=== PATIENT | female | born 1980 | race African-American/Black ===

== ENCOUNTER 2016-06-14 20:57 | Emergency (ER) | payer MEDICARE, MEDICAID ==
[~2016-06-14] VITALS: Ht 175.3 cm; Wt 117.9 kg
[~2016-06-14 20:57] MED LIST: ACET-704 PO; AMOX1TAB10 PO; AMOX1TAB61 PO; ASPI81TA11 PO; CARV12.52 PO; CYCL10TA2 PO; HYDR-971 PO; IBUP-1060 PO; IRON18TA PO; LISI-334 PO; LISI-338 PO; NITR100C62 PO; OXYC5TAB PO; PENI250T2 PO; PHEN100T82 PO; SULF1TAB24 PO
[2016-06-14 21:03] VITALS: BP 158/95
[2016-06-14] MEDS ORDERED: AMOX500C PO (21:38)
[2016-06-14] MEDS ORDERED: HYDR-971 PO (21:38)
--- NOTE | 2016-06-14 21:38 | PHYS DOC ---
Past Medical History Past Medical History: CHF, Hypertension, Migraines Additional Past Medical Histor: ENLARGED HEART, OVARIAN CYST,L5 herniated disc , dental abscesses Past Surgical History: , Tubal ligation, Other Additional Past Surgical Histo: Laproscopy,D&C, herniated disc, CLOT REMOVAL Alcohol Use: None Drug Use: None Adult General Chief Complaint Chief Complaint: DENTAL PROBLEM HPI HPI Patient is a 36 year old left jaw pain for approximately week with swelling that began 2 days ago. Patient does have a history of poor dental health. She has had multiple teeth extracted in the past. Patient is recently completed an antibiotic for urinary tract infection. She states that she typically gets her dental care and [facility]. She currently does not have a primary care doctor. Review of Systems Review of Systems Constitutional: Denies fever or chills [] Eyes: Denies change in visual acuity, redness, or eye pain [] HENT: Denies nasal congestion or sore throat [] Respiratory: Denies cough or shortness of breath [] Cardiovascular: No additional information not addressed in HPI [] GI: Denies abdominal pain, nausea, vomiting, bloody stools or diarrhea [] : Denies dysuria or hematuria [] Musculoskeletal: Denies back pain or joint pain [] Integument: Denies rash or skin lesions [] Neurologic: Denies headache, focal weakness or sensory changes [] Endocrine: Denies polyuria or polydipsia [] Allergies Allergies Allergies Coded Allergies Type Severity Reaction Last Updated Verified naproxen Allergy Intermediate Sweat 11/30/13 Yes propoxyphene napsylate Allergy Intermediate Chest problem 11/30/13 Yes tramadol Allergy Intermediate Chest problem 03/24/16 Yes Physical Exam Physical Exam Constitutional: Well developed, well nourished, no acute distress, non-toxic appearance. [] HENT: Normocephalic, atraumatic, bilateral external ears normal, oropharynx moist, no oral exudates. There is no trismus. Patient essentially has no maxillary or mandibular molars. Patient does have pain with gingival swelling around the left mandibular bicuspid. There is no active purulent drainage or fluctuant pocket. Eyes: PERRLA, EOMI, conjunctiva normal, no discharge. [] Neck: Normal range of motion, no tenderness, supple, no stridor. [] Cardiovascular:Heart rate regular rhythm, no murmur [] Lungs & Thorax: Bilateral breath sounds clear to auscultation [] Abdomen: Bowel sounds normal, soft, no tenderness, no masses, no pulsatile masses. [] Skin: Warm, dry, no erythema, no rash. [] Back: No tenderness, no CVA tenderness. [] Extremities: No tenderness, no cyanosis, no clubbing, ROM intact, no edema. [] Neurologic: Alert and oriented X 3, normal motor function, normal sensory function, no focal deficits noted. [] Psychologic: Affect normal, judgement normal, mood normal. [] Current Patient Data Vital Signs Vital Signs Date Time Temp Pulse Resp B/P Pulse Ox O2 Delivery O2 Flow Rate FiO2 06/14/16 21:03 97.7 79 20 97 Room Air 97.7 EKG EKG [] Radiology/Procedures Radiology/Procedures [] Course & Med Decision Making Course & Med Decision Making Pertinent Labs and Imaging studies reviewed. (See chart for details) [] Dragon Disclaimer Dragon Disclaimer This electronic medical record was generated, in whole or in part, using a voice recognition dictation system. Departure Departure Impression: Primary Impression: Periapical abscess Disposition: 01 HOME, SELF-CARE Condition: GOOD Referrals: NO PCP (PCP) Patient Instructions: Dental Abscess Additional Instructions: 1. Take the medication as prescribed. 2. Apply warm compresses to your left jaw every 2 hours for 20-30 minutes at a time. 3. Contact [facility] for follow-up appointment. If you are unable to follow up with [facility], use the dental resource sheet provided. 4. A pamphlet is also provided to you for assistance in finding a primary care doctor to address your medical concerns and provide refills on your medication. Scripts Amoxicillin 500 Mg Capsule1 Cap PO TID #30 CAP Prov:DUONG FERNANDO 06/14/16 Hydrocodone/Apap 5-325 (Kohler 5-325 Tablet)1 Each Tablet1 Tab PO PRN Q6HRS PRN PAIN #15 TAB Prov:DUONG FERNANDO 06/14/16 DUONG FERNANDO Jun 14, 2016 21:38
== END 2016-06-14 21:42 | disposition home or self-care (01) ==
LOC: ER 20:57
DX: K04.7 Periapical abscess without sinus (principal); K08.409 Partial loss of teeth, unspecified cause, unspecified class; I11.0 Hypertensive heart disease with heart failure; I50.9 Heart failure, unspecified; I51.7 Cardiomegaly; G43.909 Migraine, unspecified, not intractable, without status migrainosus; Z88.8 Allergy status to other drugs, medicaments and biological substances; Z88.5 Allergy status to narcotic agent
CPT/HCPCS: 99283

== ENCOUNTER 2016-07-02 18:55 | Emergency (ER) | payer MEDICARE, MEDICAID ==
[~2016-07-02] VITALS: Ht 175.3 cm; Wt 117.5 kg
[~2016-07-02 18:55] MED LIST changes: +AMOX500C PO
[2016-07-02 19:02] VITALS: BP 171/87
[2016-07-02] MEDS ORDERED: PENI500T PO (19:41)
[2016-07-02] MEDS ORDERED: HYDR-2666 PO (19:41)
--- NOTE | 2016-07-02 19:42 | PHYS DOC ---
Past Medical History Past Medical History: CHF, Hypertension, Migraines Additional Past Medical Histor: ENLARGED HEART, OVARIAN CYST,L5 herniated disc , dental abscesses Past Surgical History: , Tubal ligation, Other Additional Past Surgical Histo: Laproscopy,D&C, herniated disc, CLOT REMOVAL Alcohol Use: None Drug Use: None Adult General Chief Complaint Chief Complaint: DENTAL PROBLEM HPI HPI Patient is a 36 year old female who presents with dental pain for two days radiating to left ear. Denies fevers, difficulty swallowing, or accomanying symptoms. Reports she is going to call her dentist at [facility] in the morning. Review of Systems Review of Systems Constitutional: Denies fever or chills Eyes: Denies change in visual acuity, redness, or eye pain HENT: Denies nasal congestion or sore throat. Dental pain 2 days Respiratory: Denies cough or shortness of breath [] Cardiovascular: No additional information not addressed in HPI [] GI: Denies abdominal pain, nausea, vomiting, bloody stools or diarrhea [] : Denies dysuria or hematuria [] Musculoskeletal: Denies back pain or joint pain [] Integument: Denies rash or skin lesions [] Neurologic: Denies headache, focal weakness or sensory changes [] Endocrine: Denies polyuria or polydipsia [] Allergies Allergies Allergies Coded Allergies Type Severity Reaction Last Updated Verified naproxen Allergy Intermediate Sweat 11/30/13 Yes propoxyphene napsylate Allergy Intermediate Chest problem 11/30/13 Yes tramadol Allergy Intermediate Chest problem 03/24/16 Yes Physical Exam Physical Exam Constitutional: Well developed, well nourished, no acute distress, non-toxic appearance. HENT: Normocephalic, atraumatic, bilateral external ears normal, oropharynx moist, no oral exudates, nose normal. No bottom molars present. Erythema and decay at #21, no evidence of abscess. Eyes: PERRLA, EOMI, conjunctiva normal, no discharge. [] Neck: Normal range of motion, no tenderness, supple, no stridor. [] Cardiovascular:Heart rate regular rhythm, no murmur [] Lungs & Thorax: Bilateral breath sounds clear to auscultation [] Abdomen: Bowel sounds normal, soft, no tenderness, no masses, no pulsatile masses. [] Skin: Warm, dry, no erythema, no rash. [] Back: No tenderness, no CVA tenderness. [] Extremities: No tenderness, no cyanosis, no clubbing, ROM intact, no edema. [] Neurologic: Alert and oriented X 3, normal motor function, normal sensory function, no focal deficits noted. [] Psychologic: Affect normal, judgement normal, mood normal. [] Current Patient Data Vital Signs Vital Signs Date Time Temp Pulse Resp B/P Pulse Ox O2 Delivery O2 Flow Rate FiO2 07/02/16 19:02 98.6 111 20 99 Room Air 98.6 EKG EKG [] Radiology/Procedures Radiology/Procedures [] Impressions: 1. Dental infection Course & Med Decision Making Course & Med Decision Making Pertinent Labs and Imaging studies reviewed. (See chart for details) [] Dragon Disclaimer Dragon Disclaimer This electronic medical record was generated, in whole or in part, using a voice recognition dictation system. Departure Departure Impression: Primary Impression: Pain due to dental caries Disposition: HOME, SELF-CARE Condition: STABLE Referrals: NO PCP (PCP) Patient Instructions: Dental Caries Additional Instructions: Take medication as prescribed. Call dentist in the morning for follow up. Return if problems or concerns Scripts Hydrocodone Bit/Acetaminophen (Hydrocodone-Apap 5-325 )1 Each Tablet1 Tab PO PRN Q6HRS PRN PAIN #10 TAB Ref 0 Prov:LUI ARIAS APRN 07/02/16 Penicillin V Potassium 500 Mg Tablet1 Tab PO TID #30 TAB Prov:LUI ARIAS APRN 07/02/16 LUI ARIAS APRN Jul 02, 2016 19:41
== END 2016-07-02 20:00 | disposition home or self-care (01) ==
LOC: ER 18:55
DX: K02.9 Dental caries, unspecified (principal); K08.89 Other specified disorders of teeth and supporting structures; H92.01 Otalgia, right ear; G43.909 Migraine, unspecified, not intractable, without status migrainosus; I11.0 Hypertensive heart disease with heart failure; I50.9 Heart failure, unspecified; Z98.890 Other specified postprocedural states; Z88.6 Allergy status to analgesic agent; Z88.8 Allergy status to other drugs, medicaments and biological substances
CPT/HCPCS: 99283

== ENCOUNTER 2016-08-08 19:48 | Emergency (ER) | payer MEDICARE, MEDICAID ==
[~2016-08-08 19:48] MED LIST changes: +HYDR-2666 PO; +PENI500T PO
[2016-08-08 20:10] VITALS: BP 186/104
--- NOTE | 2016-08-08 20:52 | PHYS DOC ---
Past Medical History Past Medical History: CHF, Hypertension, Migraines Additional Past Medical Histor: ENLARGED HEART, OVARIAN CYST,L5 herniated disc , dental abscesses, ear prob Past Surgical History: , Tubal ligation, Other Additional Past Surgical Histo: Laproscopy,D&C, herniated disc, CLOT REMOVAL Alcohol Use: None Drug Use: None Adult General Chief Complaint Chief Complaint: EARACHE/EAR PAIN HPI HPI 36-year-old female presenting to the emergency department with left-sided otalgia. The pain is mild to moderate. She reports having plans to get tympanostomy tube placed. She normally gets seen at [facility] and [facility] she reports. Nonradiating. No alleviating factors. She denies fevers. Review of systems is negative for nausea vomiting fevers chills chest pain shortness of breath neck pain, stiffness vision changes numbness weakness or tingling. All other review of systems is negative unless otherwise noted in history of present illness. Review of Systems Review of Systems SEE ABOVE. Allergies Allergies Allergies Coded Allergies Type Severity Reaction Last Updated Verified naproxen Allergy Intermediate Sweat 11/30/13 Yes propoxyphene napsylate Allergy Intermediate Chest problem 11/30/13 Yes tramadol Allergy Intermediate Chest problem 03/24/16 Yes Physical Exam Physical Exam Constitutional: Well developed, well nourished, no acute distress, non-toxic appearance. [] HENT: Normocephalic, atraumatic, bilateral external ears normal, oropharynx moist, no oral exudates, nose normal. Tympanic membranes are lucent bilaterally with light reflex intact. No evidence of otitis media present. Eyes: PERRLA, EOMI, conjunctiva normal, no discharge. Neck: Normal range of motion, no tenderness, supple, no stridor. [] Cardiovascular:Heart rate regular rhythm, no murmur [] Lungs & Thorax: Bilateral breath sounds clear to auscultation Abdomen: Bowel sounds normal, soft, no tenderness, no masses, no pulsatile masses. [] Skin: Warm, dry, no erythema, no rash. Back: No tenderness, no CVA tenderness. [] Extremities: No tenderness, no cyanosis, no clubbing, ROM intact, no edema. Neurologic: Alert and oriented X 3, normal motor function, normal sensory function, no focal deficits noted. [] Psychologic: Affect normal, judgement normal, mood normal. [] Current Patient Data Vital Signs Vital Signs Date Time Temp Pulse Resp B/P Pulse Ox O2 Delivery O2 Flow Rate FiO2 08/08/16 20:10 97.3 94 18 99 Room Air 97.3 EKG EKG [] Radiology/Procedures Radiology/Procedures [] Course & Med Decision Making Course & Med Decision Making Pertinent Labs and Imaging studies reviewed. (See chart for details) [] 36-year-old female presenting with otalgia. No evidence of otitis media. [place] tracs obtained which was concerning for possible opioid abuse or misuse behaviors. The patient was subsequent discharged home to follow up with data power consultant in 2-3 days. Dragon Disclaimer Dragon Disclaimer This electronic medical record was generated, in whole or in part, using a voice recognition dictation system. Departure Departure Impression: Primary Impression: Otalgia, left ear Additional Impressions: Opioid abuse Drug-seeking behavior Disposition: HOME, SELF-CARE Condition: STABLE Referrals: NO PCP (PCP) Patient Instructions: Otalgia-Brief Additional Instructions: Thank you for allowing us to participate in your care today. Followup with your primary care physician in 3 days if your symptoms do not improve. Also follow up with your ENT doctor in 7 days. If you do not have a primary care provider you can ask for a list of our primary care providers. Return to the emergency department you have any new or concerning findings. This should be evaluated by the primary care physician and any necessary consulting services for continued management within a few days after discharge. Return to emergency room if you have any new or concerning symptoms including but not limited to fever, chills, nausea, vomiting, intractable pain, any new rashes, chest pain, shortness of air, uncontrolled bleeding, difficulty breathing, and/or vision loss. Problem Qualifiers TONIA HU MD Aug 08, 2016 20:52
== END 2016-08-08 20:50 | disposition home or self-care (01) ==
LOC: ER 19:48
DX: H92.02 Otalgia, left ear (principal); F11.10 Opioid abuse, uncomplicated; Z76.5 Malingerer [conscious simulation]; I11.0 Hypertensive heart disease with heart failure; I50.9 Heart failure, unspecified; G43.909 Migraine, unspecified, not intractable, without status migrainosus; Z88.5 Allergy status to narcotic agent; Z88.8 Allergy status to other drugs, medicaments and biological substances
CPT/HCPCS: 99281

== ENCOUNTER 2016-08-27 19:18 | Emergency (ER) | payer MEDICARE, MEDICAID | END 2016-08-27 19:54 | disposition left against medical advice (07) | LOC: ER 19:18 | DX: K08.89 Other specified disorders of teeth and supporting structures (principal); Z53.21 Procedure and treatment not carried out due to patient leaving prior to being seen by health care provider ==

== ENCOUNTER 2016-08-30 13:53 | Emergency (ER) | payer MEDICARE, MEDICAID ==
[~2016-08-30] VITALS: Ht 175.3 cm; Wt 136.1 kg
[~2016-08-30 13:53] MED LIST changes: -PENI250T2 PO; +PENI250T85 PO
--- NOTE | 2016-08-30 14:10 | PHYS DOC ---
Past Medical History Past Medical History: CHF, Hypertension, Migraines Additional Past Medical Histor: ENLARGED HEART, OVARIAN CYST,L5 herniated disc , dental abscesses, ear prob Past Surgical History: , Tubal ligation, Other Additional Past Surgical Histo: Laproscopy,D&C, herniated disc, CLOT REMOVAL Alcohol Use: None Drug Use: None Adult General Chief Complaint Chief Complaint: FLANK PAIN HPI HPI Patient is a 36 year old female presenting to the emergency department for evaluation of left flank and abdominal pain started yesterday morning and has persisted and worsened. Pain is sharp with some nausea but no fevers chills vomiting diarrhea constipation dysuria hematuria or vaginal bleeding or vaginal discharge. Her abdominal surgeries include bilateral tubal ligation. She says that this feels similar to when she had a kidney stone in the past. She has seen a urologist at [facility] and told that she has calcium stones. She is in no obvious distress with normal vital signs. Review of Systems Review of Systems Constitutional: Denies fever or chills [] Cardiovascular: No additional information not addressed in HPI [] GI: + abdominal pain, nausea. No vomiting, bloody stools or diarrhea [] : Denies dysuria or hematuria [] Musculoskeletal: + back pain. No joint pain [] Neurologic: Denies headache, focal weakness or sensory changes [] Current Medications Current Medications Current Medications Medications (Trade) Dose Ordered Sig/Ravinder Start Time Stop Time Status Last Admin Dose Admin Ketorolac Tromethamine 30 mg 30 mg 1X ONCE 08/30/16 14:30 08/30/16 14:31 DC 08/30/16 14:30 30 MG Morphine Sulfate 5 mg 1X ONCE 08/30/16 14:30 08/30/16 14:31 DC 08/30/16 14:30 5 MG Ondansetron HCl (Zofran) 8 mg 1X ONCE 08/30/16 14:30 08/30/16 14:31 DC 08/30/16 14:29 8 MG Sodium Chloride (Iv Sodium Chloride 0.9% 1000ml Bag) 1,000 ml @ 0 mls/hr 1X ONCE 08/30/16 14:30 08/30/16 14:31 DC 08/30/16 14:30 999 MLS/HR Allergies Allergies Allergies Coded Allergies Type Severity Reaction Last Updated Verified naproxen Allergy Intermediate Sweat 11/30/13 Yes propoxyphene napsylate Allergy Intermediate Chest problem 11/30/13 Yes tramadol Allergy Intermediate Chest problem 03/24/16 Yes Physical Exam Physical Exam Constitutional: Well developed, well nourished, no acute distress, non-toxic appearance. [] Cardiovascular:Heart rate regular rhythm, no murmur [] Lungs & Thorax: Bilateral breath sounds clear to auscultation [] Abdomen: Bowel sounds normal, soft, + LLQ tenderness, no masses, no pulsatile masses. [] Skin: Warm, dry, no erythema, no rash. [] Back: No tenderness. + L CVA tenderness. [] Extremities: No tenderness, no cyanosis, no clubbing, ROM intact, no edema. [] Neurologic: Alert and oriented X 3, normal motor function, normal sensory function, no focal deficits noted. [] Current Patient Data Vital Signs Vital Signs Date Time Temp Pulse Resp B/P Pulse Ox O2 Delivery O2 Flow Rate FiO2 08/30/16 14:11 97.7 88 24 131/79 98 Room Air 97.7 Lab Values Laboratory Tests Test 08/30/16 13:13 08/30/16 14:00 08/30/16 14:40 POC Urine HCG, Qualitative Hcg negative (Negative) Urine Collection Type Unknown Urine Color Yellow Urine Clarity Clear Urine pH 6.0 Urine Specific [place] 1.025 Urine Protein Negativemg/dL (NEG-TRACE) Urine Glucose (UA) Negativemg/dL (NEG) Urine Ketones (Stick) Negativemg/dL (NEG) Urine Blood Small (NEG) Urine Nitrite Negative (NEG) Urine Bilirubin Negative (NEG) Urine Urobilinogen Dipstick 0.2mg/dL (0.2 mg/dL) Urine Leukocyte Esterase Negative (NEG) Urine RBC 1-2/HPF (0-2) Urine WBC 1-4/HPF (0-4) Urine Squamous Epithelial Cells Mod/LPF Urine Bacteria 0/HPF (0-FEW) Urine Hyaline Casts Few/HPF Urine Mucus Marked/LPF White Blood Count 11.0x10^3/uL (4.0-11.0) Red Blood Count 4.51x10^6/uL (3.50-5.40) Hemoglobin 11.1g/dL (12.0-15.5) L Hematocrit 35.3% (36.0-47.0) L Mean Corpuscular Volume 78fL (79-100) L Mean Corpuscular Hemoglobin 25pg (25-35) Mean Corpuscular Hemoglobin Concent 32g/dL (31-37) Red Cell Distribution Width 15.7% (11.5-14.5) H Platelet Count 324x10^3/uL (140-400) Neutrophils (%) (Auto) 64% (31-73) Lymphocytes (%) (Auto) 29% (24-48) Monocytes (%) (Auto) 7% (0-9) Eosinophils (%) (Auto) 1% (0-3) Basophils (%) (Auto) 1% (0-3) Neutrophils # (Auto) 7.0x10^3uL (1.8-7.7) Lymphocytes # (Auto) 3.1x10^3/uL (1.0-4.8) Monocytes # (Auto) 0.7x10^3/uL (0.0-1.1) Eosinophils # (Auto) 0.1x10^3/uL (0.0-0.7) Basophils # (Auto) 0.1x10^3/uL (0.0-0.2) Sodium Level 138mmol/L (136-145) Potassium Level 3.8mmol/L (3.5-5.1) Chloride Level 106mmol/L (98-107) Carbon Dioxide Level 23mmol/L (21-32) Anion Gap 9 (6-14) Blood Urea Nitrogen 25mg/dL (7-20) H Creatinine 1.0mg/dL (0.6-1.0) Estimated GFR (Cockcroft-Gault) 75.5 BUN/Creatinine Ratio 25 (6-20) H Glucose Level 86mg/dL (70-99) Calcium Level 8.9mg/dL (8.5-10.1) Total Bilirubin 0.2mg/dL (0.2-1.0) Aspartate Amino Transferase (AST) 11U/L (15-37) L Alanine Aminotransferase (ALT) 17U/L (14-59) Alkaline Phosphatase 67U/L (46-116) Total Protein 8.0g/dL (6.4-8.2) Albumin 3.2g/dL (3.4-5.0) L Albumin/Globulin Ratio 0.7 (1.0-1.7) L Lipase 105U/L (73-393) Laboratory Tests 08/30/16 14:40 Laboratory Tests 08/30/16 14:40 EKG EKG [] Radiology/Procedures Radiology/Procedures PROCEDURE CT of the abdomen and pelvis without contrast HISTORY Left flank pain. TECHNIQUE No oral or IV contrast was given. One or more of the following individualized dose reduction techniques were utilized for this examination: 1. Automated exposure control; 2. Adjustment of the mA and/or kV according to patient size; 3. Use of iterative reconstruction technique. COMPARISON March 14, 2016 exam. FINDINGS There are 2 small calculi in the lower pole of the left kidney. The largest measures 3 millimeters in maximum dimension. These have not changed significantly. No right renal calculi or hydronephrosis is seen. No left ureteral calculus is identified. The incompletely distended urinary bladder is unremarkable. The unopacified liver and spleen are normal in size without focal lesions. The pancreas and adrenal glands are unremarkable. The unopacified bowel loops are unremarkable.. No evidence of the diverticulitis is seen. No free fluid or free air is identified. The appendix is normal in appearance. No pelvic mass is seen. The uterus is unremarkable. There are postoperative changes in the lower lumbar spine with disc space narrowing and posterior osteophyte formation at L4-5. IM[address] CT of the abdomen and pelvis shows a couple of small left renal calculi. No ureteral calculus or hydronephrosis is seen. Electronically signed by: Ericka Rashid (Aug 30, 2016 15:27:55) DICTATED and SIGNED BY: ERICKA RASHID MD DATE: 08/30/16 1527 Course & Med Decision Making Course & Med Decision Making Patient's workup is completely negative including her CT. Her repeat abdominal exam is benign with no focal tenderness rebound or guarding. Patient looks well with normal vital signs so she will be discharged in stable condition with instructions to take plenty of fluids soft diet and take NSAIDs for pain and I will prescribed Haines and Zofran for breakthrough symptoms and told her to follow with GI or primary care provider within the next 2-3 days and come back to the ER sooner with worsening pain fevers or vomiting or vaginal concerns. Patient aware and agreeable with plan and verbalized understanding of the above instructions. Dragon Disclaimer Dragon Disclaimer This electronic medical record was generated, in whole or in part, using a voice recognition dictation system. Departure Departure Impression: Primary Impression: Abdominal pain Disposition: HOME, SELF-CARE Condition: GOOD Referrals: NO PCP (PCP) NIESHA VALLADARES MD Patient Instructions: Abdominal Pain (Nonspecific) Scripts Ondansetron (Zofran Odt)4 Mg Tab.rapdis1 Tab SL Q8HRS #10 TAB Prov:NEIL GRANADOS DO 08/30/16 Hydrocodone/Apap 5-325 (Haines 5-325 Tablet)1 Each Tablet1 Tab PO PRN Q6HRS PRN PAIN #14 TAB Prov:NEIL GRANADOS DO 08/30/16 NEIL GRANADOS DO Aug 30, 2016 14:10
[2016-08-30 14:19] LABS: BILIRUBIN,URINE NEGATIVE (NEG); GLUCOSE,URINE NEGATIVE (NEG); NITRITE,URINE NEGATIVE (NEG); PROTEIN,URINE NEGATIVE (NEG-TRACE); UROBILINOGEN,URINE 0.2 mg/dL (0.2 mg/dL)
[2016-08-30 14:30] LABS: BACTERIA,URINE 0 /HPF (0-FEW); SQUAMOUS EPITHELIAL CELL,UR MOD /LPF
[2016-08-30] MEDS ORDERED: KETOROLAC TROMETHAMINE 30 MG/ML INJ. IV ONE (14:30)
[2016-08-30] MEDS ORDERED: ONDANSETRON PF 4 MG/2 ML VIAL. IV ONE (14:30)
[2016-08-30] MEDS ORDERED: MORPHINE SULFATE 10 MG/ML VIAL. IV ONE (14:30)
[2016-08-30] MEDS ORDERED: IV NORMAL SALINE 1000ML BAG 1,000 ML IV ONE (14:30)
[2016-08-30 14:57] LABS: BASO # 0.1 x10^3/uL (0.0-0.2); BASO % 1 % (0-3); EOS % 1 % (0-3); HEMATOCRIT 35.3 % (36.0-47.0); HEMOGLOBIN 11.1 g/dL (12.0-15.5); LYMPH # 3.1 x10^3/uL (1.0-4.8); LYMPH % 29 % (24-48); MEAN CORPUSCULAR HEMOGLOBIN 25 pg (25-35); MEAN CORPUSCULAR HGB CONC 32 g/dL (31-37); MEAN CORPUSCULAR VOLUME 78 fL (79-100); MONO % 7 % (0-9); NEUT % 64 % (31-73); PLATELET COUNT 324 x10^3/uL (140-400); RED BLOOD COUNT 4.51 x10^6/uL (3.50-5.40); RED CELL DISTRIBUTION WIDTH 15.7 % (11.5-14.5)
--- NOTE | 2016-08-30 15:29 | RAD ---
PROCEDURE CT of the abdomen and pelvis without contrast HISTORY Left flank pain. TECHNIQUE No oral or IV contrast was given. One or more of the following individualized dose reduction techniques were utilized for this examination: 1. Automated exposure control; 2. Adjustment of the mA and/or kV according to patient size; 3. Use of iterative reconstruction technique. COMPARISON March 14, 2016 exam. FINDINGS There are 2 small calculi in the lower pole of the left kidney. The largest measures 3 millimeters in maximum dimension. These have not changed significantly. No right renal calculi or hydronephrosis is seen. No left ureteral calculus is identified. The incompletely distended urinary bladder is unremarkable. The unopacified liver and spleen are normal in size without focal lesions. The pancreas and adrenal glands are unremarkable. The unopacified bowel loops are unremarkable.. No evidence of the diverticulitis is seen. No free fluid or free air is identified. The appendix is normal in appearance. No pelvic mass is seen. The uterus is unremarkable. There are postoperative changes in the lower lumbar spine with disc space narrowing and posterior osteophyte formation at L4-5. IM[address] CT of the abdomen and pelvis shows a couple of small left renal calculi. No ureteral calculus or hydronephrosis is seen. Electronically signed by: Ericka Tenorio (Aug 30, 2016 15:27:55)
[2016-08-30 15:34] LABS: CALCIUM 8.9 mg/dL (8.5-10.1); GFR 75.5; POTASSIUM 3.8 mmol/L (3.5-5.1)
[2016-08-30 15:37] LABS: ALBUMIN 3.2 g/dL (3.4-5.0); ALBUMIN/GLOBULIN RATIO 0.7 (1.0-1.7); TOTAL BILIRUBIN 0.2 mg/dL (0.2-1.0)
[2016-08-30 16:00] VITALS: BP 144/78
[2016-08-30] MEDS ORDERED: HYDR-971 PO (16:11)
[2016-08-30] MEDS ORDERED: ONDA4TAB10 SL (16:11)
== END 2016-08-30 16:21 | disposition home or self-care (01) ==
LOC: ER 13:53
DX: R10.9 Unspecified abdominal pain (principal); R11.0 Nausea; I11.0 Hypertensive heart disease with heart failure; I50.9 Heart failure, unspecified; Z87.442 Personal history of urinary calculi; G43.909 Migraine, unspecified, not intractable, without status migrainosus; Z98.51 Tubal ligation status; Z88.8 Allergy status to other drugs, medicaments and biological substances
CPT/HCPCS: 36415; 74176; 80053; 81001; 81025; 83690; 85027; 96361; 96374; 96375; 99285; J1885; J2270; J2405; J7030

== ENCOUNTER 2016-09-20 19:21 | Emergency (ER) | payer MEDICARE, MEDICAID ==
[~2016-09-20] VITALS: Ht 175.3 cm; Wt 136.1 kg
[~2016-09-20 19:21] MED LIST changes: -HYDR-2666 PO; +HYDR-2758 PO; +ONDA4TAB10 SL
[2016-09-20 19:34] VITALS: BP 159/90
[2016-09-20] MEDS ORDERED: AMOX875T PO (20:09)
--- NOTE | 2016-09-20 20:09 | PHYS DOC ---
Past Medical History Past Medical History: CHF, Hypertension, Kidney Stone, Migraines, UTI Additional Past Medical Histor: ENLARGED HEART, OVARIAN CYST,L5 herniated disc , dental abscesses, ear prob Past Surgical History: , Tubal ligation, Other Additional Past Surgical Histo: Laproscopy,D&C, herniated disc, CLOT REMOVAL Alcohol Use: None Drug Use: None Adult General Chief Complaint Chief Complaint: DENTAL PROBLEM HPI HPI Patient is a 36 year old female with a history of hypertension, CHF, kidney stones, who presents today with left lower gum dental pain as well as left ear pain that began this morning. Patient denies any fever or trismus. She states she just got dental insurance and she is planning to see a dentist in 3 weeks. Review of Systems Review of Systems Constitutional: Denies fever or chills [] Eyes: Denies change in visual acuity, redness, or eye pain [] HENT: Left lower gum dental pain Musculoskeletal: Denies back pain or joint pain [] Integument: Denies rash or skin lesions [] Neurologic: Denies headache, focal weakness or sensory changes [] Endocrine: Denies polyuria or polydipsia [] Allergies Allergies Allergies Coded Allergies Type Severity Reaction Last Updated Verified naproxen Allergy Intermediate Sweat 11/30/13 Yes propoxyphene napsylate Allergy Intermediate Chest problem 11/30/13 Yes tramadol Allergy Intermediate Chest problem 03/24/16 Yes Physical Exam Physical Exam Constitutional: Well developed, well nourished, no acute distress, non-toxic appearance. [] HENT: Normocephalic, atraumatic, bilateral external ears normal, oropharynx moist, no oral exudates, nose normal. [] Tooth #22 is slightly chipped. No gum erythema noted. Missing teeth #23 -32 Eyes: PERRLA, EOMI, conjunctiva normal, no discharge. [] Skin: Warm, dry, no erythema, no rash. [] Back: No tenderness, no CVA tenderness. [] Extremities: No tenderness, no cyanosis, no clubbing, ROM intact, no edema. [] Neurologic: Alert and oriented X 3, normal motor function, normal sensory function, no focal deficits noted. [] Psychologic: Affect normal, judgement normal, mood normal. [] Current Patient Data Vital Signs Vital Signs Date Time Temp Pulse Resp B/P (MAP) Pulse Ox O2 Delivery O2 Flow Rate FiO2 09/20/16 19:34 98.3 98 18 100 Room Air 98.3 EKG EKG [] Radiology/Procedures Radiology/Procedures [] Course & Med Decision Making Course & Med Decision Making Pertinent Labs and Imaging studies reviewed. (See chart for details) Patient is in the ED with dental pain and left ear pain. Left TM appears normal. This patient is well known to this ED for dental pain, ear pain, and drug seeking behavior. She was discharged with amoxicillin and informed she will not get narcotics for chronic pain from our Ed. Dragon Disclaimer Dragon Disclaimer This electronic medical record was generated, in whole or in part, using a voice recognition dictation system. Departure Departure Impression: Primary Impression: Dentalgia Additional Impression: Otalgia of left ear Disposition: HOME, SELF-CARE Condition: STABLE Referrals: NO PCP (PCP) Follow-up with your own dentist as soon as possible Patient Instructions: Dental Caries, Otalgia-Brief Additional Instructions: You were seen for dental pain and ear pain. Follow-up with your dentist and primary care doctor soon as you can. Scripts Amoxicillin (AMOXICILLIN) 875 Mg Tablet 1 TAB PO BID, #20 TAB Prov: GINNY STERN APRN 09/20/16 Problem Qualifiers GINNY STERN APRN September 20, 2016 20:09
== END 2016-09-20 20:13 | disposition home or self-care (01) ==
LOC: ER 19:21
DX: K08.89 Other specified disorders of teeth and supporting structures (principal); H92.02 Otalgia, left ear; G43.909 Migraine, unspecified, not intractable, without status migrainosus; I11.0 Hypertensive heart disease with heart failure; I50.9 Heart failure, unspecified; Z88.6 Allergy status to analgesic agent; Z88.8 Allergy status to other drugs, medicaments and biological substances
CPT/HCPCS: 99283

== ENCOUNTER 2016-09-29 12:36 | Emergency (ER) | payer MEDICARE, MEDICAID ==
[~2016-09-29] VITALS: Ht 175.3 cm; Wt 136.1 kg
[~2016-09-29 12:36] MED LIST changes: +AMOX875T PO; +HYDR-2666 PO; -HYDR-2758 PO
[2016-09-29 13:54] VITALS: BP 154/102
--- NOTE | 2016-09-29 14:30 | PHYS DOC ---
Past Medical History Past Medical History: CHF, Hypertension, Kidney Stone, Migraines, UTI Additional Past Medical Histor: ENLARGED HEART, OVARIAN CYST,L5 herniated disc , dental abscesses, ear prob Past Surgical History: , Tubal ligation, Other Additional Past Surgical Histo: Laproscopy,D&C, herniated disc, CLOT REMOVAL Alcohol Use: None Drug Use: None Adult General Chief Complaint Chief Complaint: FLANK PAIN HPI HPI Patient is a 36 year old female who presents with the complaint of left flank and left lower quadrant abdominal pain. The patient states that she has kidney stones in this location, she sees a urologist at [facility], he might need to put some stents in. She has been "Peeing blood". I have seen this patient before both here and at [facility] with this exact complaint multiple times. Patient was here at [facility] last month with this complaint, she had a CT scan that showed 2 very small stones in the left kidney that do not appear to be close to the ureter. She's had this same finding multiple times in the past. I asked the patient if anything has changed since she was here last and she states this is the same as what brought her in last time. Review of Systems Review of Systems Constitutional: Denies fever or chills [] GI: As in history of present illness : As in history of present illness Allergies Allergies Allergies Coded Allergies Type Severity Reaction Last Updated Verified naproxen Allergy Intermediate Sweat 11/30/13 Yes propoxyphene napsylate Allergy Intermediate Chest problem 11/30/13 Yes tramadol Allergy Intermediate Chest problem 03/24/16 Yes Physical Exam Physical Exam Constitutional: Well developed, well nourished, obese, ambulatory no acute distress, non-toxic appearance. Alert, mentating normally. HENT: Normocephalic, atraumatic, bilateral external ears normal, nose normal. [ ] Eyes: conjunctiva normal, no discharge. [] Neck: Normal range of motion, no stridor. [] Cardiovascular:Heart rate regular rhythm, no murmur [] Lungs & Thorax: Bilateral breath sounds clear to auscultation [] Abdomen: Bowel sounds normal, soft, no tenderness, no masses, no pulsatile masses. [] Skin: Warm, dry, no erythema, no rash. [] Back: No tenderness, no CVA tenderness. [] Extremities: No tenderness, no cyanosis, no clubbing, ROM intact, no edema. [] Neurologic: Alert and oriented X 3, normal motor function, normal sensory function, no focal deficits noted. [] Current Patient Data Vital Signs Vital Signs Date Time Temp Pulse Resp B/P (MAP) Pulse Ox O2 Delivery O2 Flow Rate FiO2 09/29/16 13:54 100 12 154/102 (119) 98 Room Air 09/29/16 13:25 97.7 97.7 Lab Values Laboratory Tests Test 09/29/16 12:23 POC Urine HCG, Qualitative Hcg negative (Negative) EKG EKG [] Radiology/Procedures Radiology/Procedures [] Course & Med Decision Making Course & Med Decision Making Pertinent Labs and Imaging studies reviewed. (See chart for details) 36-year-old female presents with left flank and left lower quadrant abdominal pain, she believes it's her kidney stone. I reviewed the patient's records and discussed with her that recent CT scans hip showed that she does have 2 small stones in the parenchyma of the left kidney, these do not appear to be in any danger of passing. I don't believe she likely has ureteral stones today. She's had many many CT scans and I don't believe she would benefit from another one today. I reassured the patient that at this time there is no indication for getting another CT scan or further evaluation. This pain seems to be chronic in nature. Additionally, I have concerns about the patient in terms of drug- seeking behavior. I have seen her with the same presentation and the same complaints at [facility] as well. Patient also was recently seen here for toothache. At this time I am advising ibuprofen, push fluids, follow-up with her urologist. [] Dragon Disclaimer Dragon Disclaimer This electronic medical record was generated, in whole or in part, using a voice recognition dictation system. Departure Departure Impression: Primary Impression: Left flank pain, chronic Disposition: 01 HOME, SELF-CARE Condition: STABLE Referrals: UNKNOWN PCP NAME (PCP) Additional Instructions: As we discussed, recent CT scan in the emergency department showed 2 very small stones in your kidney, I don't believe these stones will be passing because you have had this same finding before. We don't know the cause of your left flank pain but it is a chronic pain and does not sound like it's anything serious. Drink plenty of fluids and follow-up with your urologist as planned. LEOPOLDO KAUR MD September 29, 2016 14:30
== END 2016-09-29 14:40 | disposition home or self-care (01) ==
LOC: ER 12:36
DX: R10.32 Left lower quadrant pain (principal); G89.29 Other chronic pain; I11.0 Hypertensive heart disease with heart failure; I50.9 Heart failure, unspecified; G43.909 Migraine, unspecified, not intractable, without status migrainosus; Z87.440 Personal history of urinary (tract) infections; Z98.890 Other specified postprocedural states; Z87.442 Personal history of urinary calculi; Z98.51 Tubal ligation status; Z88.6 Allergy status to analgesic agent; Z88.8 Allergy status to other drugs, medicaments and biological substances
CPT/HCPCS: 81025; 84703; 99284

== ENCOUNTER 2016-10-22 18:03 | Emergency (ER) | payer MEDICARE, MEDICAID ==
[~2016-10-22] VITALS: Ht 175.3 cm; Wt 136.1 kg
[~2016-10-22 18:03] MED LIST changes: -HYDR-2666 PO; +HYDR-2758 PO
[2016-10-22] MEDS ORDERED: fentaNYL PF VIAL 100 MCG/2 ML VIAL IV PRN (18:30)
[2016-10-22 18:43] LABS: BASO % 1 % (0-3); EOS % 1 % (0-3); HEMATOCRIT 32.7 % (36.0-47.0); HEMOGLOBIN 10.5 g/dL (12.0-15.5); LYMPH # 2.3 x10^3/uL (1.0-4.8); LYMPH % 29 % (24-48); MEAN CORPUSCULAR HEMOGLOBIN 25 pg (25-35); MEAN CORPUSCULAR HGB CONC 32 g/dL (31-37); MEAN CORPUSCULAR VOLUME 78 fL (79-100); MONO % 5 % (0-9); NEUT % 65 % (31-73); PLATELET COUNT 265 x10^3/uL (140-400); RED BLOOD COUNT 4.18 x10^6/uL (3.50-5.40); WHITE BLOOD COUNT 8.1 x10^3/uL (4.0-11.0)
[2016-10-22] MEDS ORDERED: ASPIRIN 325 MG TABLET PO ONE (18:45)
[2016-10-22 18:55] LABS: CREATININE 0.7 mg/dL (0.6-1.0); GFR 113.9; POTASSIUM 3.7 mmol/L (3.5-5.1)
--- NOTE | 2016-10-22 19:25 | PHYS DOC ---
Past Medical History Past Medical History: CHF, Hypertension, Kidney Stone, Migraines, UTI Additional Past Medical Histor: ENLARGED HEART, OVARIAN CYST,L5 herniated disc , dental abscesses, ear prob Past Surgical History: , Tubal ligation, Other Additional Past Surgical Histo: Laproscopy,D&C, herniated disc, CLOT REMOVAL Alcohol Use: None Drug Use: None Adult General Chief Complaint Chief Complaint: CHEST WALL PAIN HPI HPI Patient is a 36 year old female who presents with intermittent chest pains that are central, stabbing and aching, occurring 2-3 times per day over the past 2 days. Last episode was around 2 PM today, occurring at rest. Last approximately 1 minute at a time. Also notes some difficulty breathing when laying flat over the past 2 days. No resting or exertional dyspnea. She denies cough, hemoptysis, palpitations, diaphoresis, lightheadedness, rash, trauma, fever or chills, nausea or vomiting, diarrhea, leg pain or swelling. Took an ibuprofen with improvement of symptoms. Review of Systems Review of Systems Constitutional: Denies fever or chills [] Eyes: Denies change in visual acuity, redness, or eye pain [] HENT: Denies nasal congestion or sore throat [] Respiratory: Denies cough or shortness of breath [] Cardiovascular: No additional information not addressed in HPI [] GI: Denies abdominal pain, nausea, vomiting, bloody stools or diarrhea [] : Denies dysuria or hematuria [] Musculoskeletal: Denies back pain or joint pain [] Integument: Denies rash or skin lesions [] Neurologic: Denies headache, focal weakness or sensory changes [] Endocrine: Denies polyuria or polydipsia [] Current Medications Current Medications Current Medications Medications (Trade) Dose Ordered Sig/[facility] Start Time Stop Time Status Last Admin Dose Admin Aspirin (Amy Aspirin) 325 mg 1X ONCE 10/22/16 18:45 10/22/16 18:46 DC 10/22/16 18:48 325 MG Fentanyl Citrate (Fentanyl 2ml Vial) 50 mcg PRN Q15MIN PRN 10/22/16 18:30 10/22/16 19:44 DC 10/22/16 18:51 50 MCG Allergies Allergies Allergies Coded Allergies Type Severity Reaction Last Updated Verified naproxen Allergy Intermediate Sweat 11/30/13 Yes propoxyphene napsylate Allergy Intermediate Chest problem 11/30/13 Yes tramadol Allergy Intermediate Chest problem 03/24/16 Yes Physical Exam Physical Exam Constitutional: Well developed, well nourished, no acute distress, non-toxic appearance. [] HENT: Normocephalic, atraumatic, bilateral external ears normal, oropharynx moist, nose normal. [] Eyes: PERRLA, EOMI. [] Neck: Normal range of motion, supple. [] Cardiovascular:Heart rate regular rhythm [] Lungs & Thorax: Bilateral breath sounds clear to auscultation. No chest wall tenderness [] Abdomen: Bowel sounds normal, soft, no tenderness. [] Skin: Warm, dry, no erythema, no rash. [] Back: Normal range of motion. [] Extremities: No tenderness, ROM intact, no edema. [] Neurologic: Alert and oriented X 3, normal motor function, normal sensory function, no focal deficits noted. [] Psychologic: Affect normal, judgement normal, mood normal. [] Current Patient Data Vital Signs Vital Signs Date Time Temp Pulse Resp B/P (MAP) Pulse Ox O2 Delivery O2 Flow Rate FiO2 10/22/16 19:30 82 21 138/88 (105) 98 Room Air 10/22/16 18:17 98.1 98.1 Lab Values Laboratory Tests Test 10/22/16 18:33 White Blood Count 8.1 x10^3/uL (4.0-11.0) Red Blood Count 4.18 x10^6/uL (3.50-5.40) Hemoglobin 10.5 g/dL (12.0-15.5) L Hematocrit 32.7 % (36.0-47.0) L Mean Corpuscular Volume 78 fL (79-100) L Mean Corpuscular Hemoglobin 25 pg (25-35) Mean Corpuscular Hemoglobin Concent 32 g/dL (31-37) Red Cell Distribution Width 16.0 % (11.5-14.5) H Platelet Count 265 x10^3/uL (140-400) Neutrophils (%) (Auto) 65 % (31-73) Lymphocytes (%) (Auto) 29 % (24-48) Monocytes (%) (Auto) 5 % (0-9) Eosinophils (%) (Auto) 1 % (0-3) Basophils (%) (Auto) 1 % (0-3) Neutrophils # (Auto) 5.3 x10^3uL (1.8-7.7) Lymphocytes # (Auto) 2.3 x10^3/uL (1.0-4.8) Monocytes # (Auto) 0.4 x10^3/uL (0.0-1.1) Eosinophils # (Auto) 0.1 x10^3/uL (0.0-0.7) Basophils # (Auto) 0.0 x10^3/uL (0.0-0.2) Sodium Level 146 mmol/L (136-145) H Potassium Level 3.7 mmol/L (3.5-5.1) Chloride Level 110 mmol/L (98-107) H Carbon Dioxide Level 24 mmol/L (21-32) Anion Gap 12 (6-14) Blood Urea Nitrogen 13 mg/dL (7-20) Creatinine 0.7 mg/dL (0.6-1.0) Estimated GFR (Cockcroft-Gault) 113.9 Glucose Level 90 mg/dL (70-99) Calcium Level 9.0 mg/dL (8.5-10.1) Troponin I Quantitative < 0.017 ng/mL (0.000-0.055) YI-Nma-Z-Type Natriuretic Peptide 160 pg/mL (0-124) H Laboratory Tests 10/22/16 18:33 Laboratory Tests 10/22/16 18:33 EKG EKG EKG as interpreted by me as normal sinus rhythm, rate 81, no ST-T changes, OR 140, QTc 484, no ectopy. Radiology/Procedures Radiology/Procedures Chest xray as interpreted by me with no acute cardiopulmonary disease process Course & Med Decision Making Course & Med Decision Making Pertinent Labs and Imaging studies reviewed. (See chart for details) Workup is unremarkable. 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 Return precautions given. She understands and agrees with plan. Adrianna Disclaimer Dragon Disclaimer This electronic medical record was generated, in whole or in part, using a voice recognition dictation system. Departure Departure Impression: Primary Impression: Chest pain Disposition: HOME, SELF-CARE Condition: STABLE Referrals: UNKNOWN PCP NAME (PCP) Patient Instructions: Chest Pain (Nonspecific), [id number] Additional Instructions: Follow-up with your primary care doctor and pole lift operator. Return for any concerns. Problem Qualifiers Primary Impression: Chest pain Chest pain type: unspecified Qualified Codes: R07.9 - Chest pain, unspecified Francesca JOHN MD Oct 22, 2016 19:25
[2016-10-22 19:30] VITALS: BP 138/88
--- NOTE | 2016-10-23 06:37 | EKG ---
[facility] [address] [place] [address] Test Date: 2016-10-22 Test Time: 18:18:47 Pat Name: NASREEN URBANO Department: Room: Gender: F Graduate Teaching Associate: : 1980 Requested By: Francesca JOHN Order Number: [id number] Reading MD: Measurements Intervals [place] Rate: 81 P: 18 WV: 148 QRS: -8 QRSD: 86 T: 8 QT: 416 QTc: 484 Interpretive Statements SINUS RHYTHM LEFTWARD AXIS PROLONGED QT NO SPECIFIC ECG ABNORMALITIES RI6.01 No previous ECG available for comparison
--- NOTE | 2016-10-23 08:40 | RAD ---
Indication chest pain. PA and lateral views of the chest were obtained. Comparison is made to an examination May 13, 2015. The heart and pulmonary vessels appear normal. The lungs are clear. There is no significant pleural fluid or pneumothorax. There's been little change compared to the previous exam. IMPRESSION: No acute or focal process. No significant change
== END 2016-10-22 19:40 | disposition home or self-care (01) ==
LOC: ER 18:03
DX: R07.9 Chest pain, unspecified (principal); R06.00 Dyspnea, unspecified; I11.0 Hypertensive heart disease with heart failure; I50.9 Heart failure, unspecified; G43.909 Migraine, unspecified, not intractable, without status migrainosus; Z87.440 Personal history of urinary (tract) infections; Z98.51 Tubal ligation status; Z87.442 Personal history of urinary calculi; Z88.5 Allergy status to narcotic agent; Z88.8 Allergy status to other drugs, medicaments and biological substances
CPT/HCPCS: 36415; 71020; 80048; 83880; 84484; 85027; 93005; 96374; 99285; J3010

== ENCOUNTER 2016-12-14 16:52 | Emergency (ER) | payer MEDICARE, MEDICAID ==
[2016-12-14 17:16] LABS: BASO % 0 % (0-3); EOS % 0 % (0-3); HEMATOCRIT 34.1 % (36.0-47.0); HEMOGLOBIN 11.3 g/dL (12.0-15.5); LYMPH # 2.1 x10^3/uL (1.0-4.8); LYMPH % 28 % (24-48); MEAN CORPUSCULAR HEMOGLOBIN 26 pg (25-35); MEAN CORPUSCULAR HGB CONC 33 g/dL (31-37); MEAN CORPUSCULAR VOLUME 78 fL (79-100); MONO % 6 % (0-9); NEUT % 65 % (31-73); PLATELET COUNT 304 x10^3/uL (140-400); RED BLOOD COUNT 4.37 x10^6/uL (3.50-5.40); RED CELL DISTRIBUTION WIDTH 15.8 % (11.5-14.5); WHITE BLOOD COUNT 7.6 x10^3/uL (4.0-11.0)
[2016-12-14 17:19] LABS: BILIRUBIN,URINE NEGATIVE (NEG); GLUCOSE,URINE NEGATIVE (NEG); NITRITE,URINE NEGATIVE (NEG); PROTEIN,URINE 30 mg/dL (NEG-TRACE); UROBILINOGEN,URINE 0.2 mg/dL (0.2 mg/dL)
[2016-12-14 17:27] LABS: BACTERIA,URINE MANY /HPF (0-FEW); CALCIUM 8.3 mg/dL (8.5-10.1); CREATININE 0.7 mg/dL (0.6-1.0); GFR 113.9; POTASSIUM 3.9 mmol/L (3.5-5.1); RBC,URINE 0 /HPF (0-2); SQUAMOUS EPITHELIAL CELL,UR MANY /LPF; WBC,URINE RARE /HPF (0-4)
[2016-12-14 17:55] VITALS: BP 156/92
--- NOTE | 2016-12-14 18:02 | PHYS DOC ---
Past Medical History Past Medical History: CHF, Hypertension, Kidney Stone, Migraines, UTI Additional Past Medical Histor: ENLARGED HEART, OVARIAN CYST,L5 herniated disc , dental abscesses, ear prob Past Surgical History: , Tubal ligation, Other Additional Past Surgical Histo: Laproscopy,D&C, herniated disc, CLOT REMOVAL Alcohol Use: None Drug Use: None Adult General Chief Complaint Chief Complaint: BLOOD IN URINE HPI HPI Patient is a 36 year old female who presents with hematuria. She has 2 day history of left flank pain & hematuria. Denies fevers/chills, nausea/vomiting, diarrhea/constipation, dysuria. She reports previous history of similar symptoms. She has previous history of kidney stones with known intrarenal stones. Has an appointment with her urologist next week. Review of Systems Review of Systems Constitutional: Denies fever or chills HENT: Denies nasal congestion or sore throat Respiratory: Denies cough or shortness of breath Cardiovascular: Denies chest pain or edema GI: Denies abdominal pain, nausea, vomiting, or diarrhea : Reports hematuria Musculoskeletal: Reports flank pain Integument: Denies rash or skin lesions Neurologic: Denies headache, focal weakness or sensory changes Allergies Allergies Allergies Coded Allergies Type Severity Reaction Last Updated Verified naproxen Allergy Intermediate Sweat 11/30/13 Yes propoxyphene napsylate Allergy Intermediate Chest problem 11/30/13 Yes tramadol Allergy Intermediate Chest problem 03/24/16 Yes Physical Exam Physical Exam Constitutional: Obese, no acute distress, non-toxic appearance. HENT: Normocephalic, atraumatic, bilateral external ears normal, oropharynx moist, nose normal. Eyes: conjunctiva normal, no discharge. Neck: supple, no stridor. Cardiovascular: RRR, no murmurs, no edema. Lungs & Thorax: LCTAB, no wheezing, no respiratory distress. Abdomen: soft, no focal abdominal tenderness with palpation, no rebound or guarding, no masses or pulsatile masses, nondistended. Skin: Warm, dry, no erythema, no rash. Back: Left CVA tenderness is present Extremities: No tenderness, no edema. Neurologic: Alert and oriented X 3, no focal deficits noted. Psychologic: Affect normal, judgement normal, mood normal. Current Patient Data Vital Signs Vital Signs Date Time Temp Pulse Resp B/P (MAP) Pulse Ox O2 Delivery O2 Flow Rate FiO2 8/13/17 17:55 88 18 156/92 (113) 100 Room Air 12/14/16 16:55 98.4 98.4 Lab Values Laboratory Tests Test 12/14/16 16:12 12/14/16 17:05 POC Urine HCG, Qualitative Hcg negative (Negative) White Blood Count 7.6 x10^3/uL (4.0-11.0) Red Blood Count 4.37 x10^6/uL (3.50-5.40) Hemoglobin 11.3 g/dL (12.0-15.5) L Hematocrit 34.1 % (36.0-47.0) L Mean Corpuscular Volume 78 fL (79-100) L Mean Corpuscular Hemoglobin 26 pg (25-35) Mean Corpuscular Hemoglobin Concent 33 g/dL (31-37) Red Cell Distribution Width 15.8 % (11.5-14.5) H Platelet Count 304 x10^3/uL (140-400) Neutrophils (%) (Auto) 65 % (31-73) Lymphocytes (%) (Auto) 28 % (24-48) Monocytes (%) (Auto) 6 % (0-9) Eosinophils (%) (Auto) 0 % (0-3) Basophils (%) (Auto) 0 % (0-3) Neutrophils # (Auto) 4.9 x10^3uL (1.8-7.7) Lymphocytes # (Auto) 2.1 x10^3/uL (1.0-4.8) Monocytes # (Auto) 0.5 x10^3/uL (0.0-1.1) Eosinophils # (Auto) 0.0 x10^3/uL (0.0-0.7) Basophils # (Auto) 0.0 x10^3/uL (0.0-0.2) Urine Collection Type Unknown Urine Color Yellow Urine Clarity Turbid Urine pH 6.0 Urine Specific [place] >=1.030 Urine Protein 30 mg/dL (NEG-TRACE) Urine Glucose (UA) Negative mg/dL (NEG) Urine Ketones (Stick) Negative mg/dL (NEG) Urine Blood Negative (NEG) Urine Nitrite Negative (NEG) Urine Bilirubin Negative (NEG) Urine Urobilinogen Dipstick 0.2 mg/dL (0.2 mg/dL) Urine Leukocyte Esterase Negative (NEG) Urine RBC 0 /HPF (0-2) Urine WBC Rare /HPF (0-4) Urine Squamous Epithelial Cells Many /LPF Urine Bacteria Many /HPF (0-FEW) Urine Mucus Mod /LPF Sodium Level 140 mmol/L (136-145) Potassium Level 3.9 mmol/L (3.5-5.1) Chloride Level 106 mmol/L (98-107) Carbon Dioxide Level 25 mmol/L (21-32) Anion Gap 9 (6-14) Blood Urea Nitrogen 13 mg/dL (7-20) Creatinine 0.7 mg/dL (0.6-1.0) Estimated GFR (Cockcroft-Gault) 113.9 Glucose Level 99 mg/dL (70-99) Calcium Level 8.3 mg/dL (8.5-10.1) L Laboratory Tests 12/14/16 17:05 Laboratory Tests 12/14/16 17:05 Microbiology 12/14/16 Urine Culture - Preliminary, Resulted 12/14/16 Urine Culture Result 1 (ROSA MARIA) - Preliminary, Resulted EKG EKG [] Radiology/Procedures Radiology/Procedures [] Course & Med Decision Making Course & Med Decision Making Pertinent Labs and Imaging studies reviewed. (See chart for details) The patient presents with flank pain. She is well known to this emergency department with numerous visits for similar complaints. She is well appearing, cheerful, stable vitals, nonfocal abdominal exam. UA negative for blood or infection. Recommend keep follow-up appointment with urologist. Return to the emergency department for high fever, severe pain, uncontrolled vomiting, any otherwise worsening condition. Discharged home in stable condition. [] Dragon Disclaimer Dragon Disclaimer This electronic medical record was generated, in whole or in part, using a voice recognition dictation system. Departure Departure Impression: Primary Impression: Chronic flank pain Disposition: 01 HOME, SELF-CARE Condition: STABLE Referrals: UNKNOWN PCP NAME (PCP) Patient Instructions: Flank Pain, [id number] Additional Instructions: You were seen in the emergency department today for flank pain. There is no blood in your urine. You do not have a urinary tract infection. No significant findings were identified. Please take Tylenol or ibuprofen for pain. Drink fluids to stay hydrated. Follow-up with your urologist as scheduled. Come back for high fever, severe abdominal pain, uncontrolled vomiting, any otherwise worsening condition. ASHLEY NIXON MD Dec 14, 2016 18:02
== END 2016-12-14 18:00 | disposition home or self-care (01) ==
LOC: ER 16:52
DX: G89.29 Other chronic pain (principal); R10.9 Unspecified abdominal pain; I11.0 Hypertensive heart disease with heart failure; I50.9 Heart failure, unspecified; G43.909 Migraine, unspecified, not intractable, without status migrainosus; E66.9 Obesity, unspecified; Z87.440 Personal history of urinary (tract) infections; Z87.442 Personal history of urinary calculi; Z88.5 Allergy status to narcotic agent; Z88.8 Allergy status to other drugs, medicaments and biological substances
CPT/HCPCS: 36415; 80048; 81001; 81025; 85025; 87086; 99284

== ENCOUNTER 2017-01-10 19:03 | Emergency (ER) | payer MEDICARE, MEDICAID ==
[~2017-01-10 19:03] MED LIST changes: -OXYC5TAB PO; +OXYC5TAB95 PO
[2017-01-10 19:25] VITALS: BP 178/100
[2017-01-10] MEDS ORDERED: SULF1TAB24 PO (19:43)
--- NOTE | 2017-01-10 19:44 | PHYS DOC ---
Past Medical History Past Medical History: CHF, Hypertension, Kidney Stone, Migraines, UTI Additional Past Medical Histor: ENLARGED HEART, OVARIAN CYST,L5 herniated disc , dental abscesses, ear prob Past Surgical History: , Tubal ligation, Other Additional Past Surgical Histo: Laproscopy,D&C, herniated disc, CLOT REMOVAL Alcohol Use: None Drug Use: None Adult General Chief Complaint Chief Complaint: ABSCESS HPI HPI Patient is a 36 year old E male presents to the emergency department with complaints of discomfort in the right axillary region. She states she has a history of abscesses in the right axillary region and this feels the same. She is requesting a prescription for Bactrim. Review of Systems Review of Systems Constitutional: Denies fever or chills [] Eyes: Denies change in visual acuity, redness, or eye pain [] HENT: Denies nasal congestion or sore throat [] Respiratory: Denies cough or shortness of breath [] Cardiovascular: No additional information not addressed in HPI [] GI: Denies abdominal pain, nausea, vomiting, bloody stools or diarrhea [] : Denies dysuria or hematuria [] Musculoskeletal: Denies back pain or joint pain [] Integument: Abscess Neurologic: Denies headache, focal weakness or sensory changes [] Endocrine: Denies polyuria or polydipsia [] Allergies Allergies Allergies Coded Allergies Type Severity Reaction Last Updated Verified naproxen Allergy Intermediate Sweat 11/30/13 Yes propoxyphene napsylate Allergy Intermediate Chest problem 11/30/13 Yes tramadol Allergy Intermediate Chest problem 03/24/16 Yes Physical Exam Physical Exam Constitutional: Well developed, well nourished, no acute distress, non-toxic appearance. [] HENT: Normocephalic, atraumatic, bilateral external ears normal, oropharynx moist, no oral exudates, nose normal. [] Eyes: PERRLA, EOMI, conjunctiva normal, no discharge. [] Neck: Normal range of motion, no tenderness, supple and fell lymphadenopathy, no stridor. [] Cardiovascular:Heart rate regular rhythm, no murmur [] Lungs & Thorax: Bilateral breath sounds clear to auscultation [] Skin: Warm, dry, and axillary region with a 1 cm pink papular area without induration, fluctuance or surrounding erythema. Is mildly tender. There are no vesicles, bullae, pustules. Back: No tenderness, no CVA tenderness. [] Extremities: No tenderness, no cyanosis, no clubbing, ROM intact, no edema. [] Neurologic: Alert and oriented X 3, normal motor function, normal sensory function, no focal deficits noted. [] Psychologic: Affect normal, judgement normal, mood normal. [] Current Patient Data Vital Signs Vital Signs Date Time Temp Pulse Resp B/P (MAP) Pulse Ox O2 Delivery O2 Flow Rate FiO2 01/10/17 19:25 98.7 108 18 97 Room Air 98.7 EKG EKG [] Radiology/Procedures Radiology/Procedures [] Course & Med Decision Making Course & Med Decision Making Pertinent Labs and Imaging studies reviewed. (See chart for details) [] Dragon Disclaimer Dragon Disclaimer This electronic medical record was generated, in whole or in part, using a voice recognition dictation system. Departure Departure Impression: Primary Impression: Axillary abscess Disposition: 01 HOME, SELF-CARE Condition: STABLE Referrals: UNKNOWN PCP NAME (PCP) [facility] Patient Instructions: Abscess Scripts Sulfamethoxazole/Trimethoprim (BACTRIM DS TABLET) 1 Each Tablet 1 TAB PO BID, #20 TAB Prov: ROSALIA JUARES APRN 01/10/17 ROSALIA JUARES APRN Jan 10, 2017 19:44
== END 2017-01-10 19:50 | disposition home or self-care (01) ==
LOC: ER 19:03
DX: L02.411 Cutaneous abscess of right axilla (principal); I11.0 Hypertensive heart disease with heart failure; I50.9 Heart failure, unspecified; G43.909 Migraine, unspecified, not intractable, without status migrainosus; Z88.8 Allergy status to other drugs, medicaments and biological substances; Z87.442 Personal history of urinary calculi; Z87.440 Personal history of urinary (tract) infections; Z88.5 Allergy status to narcotic agent
CPT/HCPCS: 99283

== ENCOUNTER 2017-02-02 17:37 | Emergency (ER) | payer MEDICARE, MEDICAID ==
[~2017-02-02] VITALS: Ht 175.3 cm; Wt 136.1 kg
[2017-02-02 20:12] LABS: BASO % 0 % (0-3); EOS % 2 % (0-3); HEMATOCRIT 31.5 % (36.0-47.0); HEMOGLOBIN 10.1 g/dL (12.0-15.5); LYMPH % 38 % (24-48); MEAN CORPUSCULAR HEMOGLOBIN 25 pg (25-35); MEAN CORPUSCULAR HGB CONC 32 g/dL (31-37); MEAN CORPUSCULAR VOLUME 78 fL (79-100); MONO % 8 % (0-9); NEUT % 52 % (31-73); PLATELET COUNT 216 x10^3/uL (140-400); RED BLOOD COUNT 4.02 x10^6/uL (3.50-5.40); RED CELL DISTRIBUTION WIDTH 15.9 % (11.5-14.5); WHITE BLOOD COUNT 5.4 x10^3/uL (4.0-11.0)
[2017-02-02] MEDS: IBUPROFEN 600 MG TABLET. PO ONE (20:12)
[2017-02-02 20:25] LABS: CALCIUM 8.3 mg/dL (8.5-10.1); CREATININE 0.7 mg/dL (0.6-1.0); GFR 113.9; POTASSIUM 3.7 mmol/L (3.5-5.1)
[2017-02-02 20:29] LABS: ALBUMIN/GLOBULIN RATIO 0.8 (1.0-1.7); TOTAL BILIRUBIN 0.1 mg/dL (0.2-1.0); TOTAL PROTEIN 6.8 g/dL (6.4-8.2)
[2017-02-02 21:00] VITALS: BP 168/102
[2017-02-02] MEDS: HYDROcodone/APAP 5/325MG 1 TAB TABLET PO ONE (21:27)
--- NOTE | 2017-02-03 00:04 | PHYS DOC ---
Past Medical History Past Medical History: CHF, Hypertension, Kidney Stone, Migraines, UTI Additional Past Medical Histor: ENLARGED HEART, OVARIAN CYST,L5 herniated disc , dental abscesses, ear prob Past Surgical History: , Tubal ligation, Other Additional Past Surgical Histo: Laproscopy,D&C, herniated disc, CLOT REMOVAL Alcohol Use: None Drug Use: None Adult General Chief Complaint Chief Complaint: LOWER EXTREMITY SWELLING HPI HPI Patient is a 36 year old female who presents with left foot swelling. THe patient reports 3 day history of painful swelling to bilateral lower extremities , greatest to left foot & calf. She denies history of traumatic injury. Denies fevers/chills, skin changes, chest pain, shortness of breath. She has history of CHF & HTN. Denies history of DVT/PE, no hormone supplements or control, denies recent travel or surgery. Review of Systems Review of Systems Constitutional: Denies fever or chills HENT: Denies nasal congestion or sore throat Respiratory: Denies cough or shortness of breath Cardiovascular: Denies chest pain , reports edema GI: Denies abdominal pain, nausea, vomiting Musculoskeletal: Denies back pain, reports calf/foot pain Integument: Denies rash or skin lesions Neurologic: Denies headache, focal weakness or sensory changes Current Medications Current Medications Current Medications Medications (Trade) Dose Ordered Sig/Ravinder Start Time Stop Time Status Last Admin Dose Admin Acetaminophen/ Hydrocodone Bitart (Lortab 5/325) 1 tab 1X ONCE 02/02/17 21:30 02/02/17 21:31 DC 02/02/17 21:27 1 TAB Ibuprofen (Motrin) 600 mg 1X ONCE 02/02/17 20:00 02/02/17 20:02 DC 02/02/17 20:12 600 MG Allergies Allergies Allergies Coded Allergies Type Severity Reaction Last Updated Verified naproxen Allergy Intermediate Sweat 11/30/13 Yes propoxyphene napsylate Allergy Intermediate Chest problem 11/30/13 Yes tramadol Allergy Intermediate Chest problem 03/24/16 Yes Physical Exam Physical Exam Constitutional: obese, no acute distress, non-toxic appearance. HENT: Normocephalic, atraumatic, bilateral external ears normal, oropharynx moist, nose normal. Eyes: conjunctiva normal, no discharge Cardiovascular: RRR, no murmurs, no edema. Lungs & Thorax: LCTAB, no wheezing, no respiratory distress. Abdomen: soft, nontender, nondistended. Skin: Warm, dry, no erythema, no rash. Back: No tenderness. Extremities: left lower extremity with 1+ edema to foot, ankle, calf. dp/pt 2+ , sensation intact to foot, foot is warm with cap refill < 2 sec. calf tenderness with +yoselyn sign. Neurologic: Alert and oriented X 3, no focal deficits noted. Psychologic: Affect normal, judgement normal, mood normal. Current Patient Data Vital Signs Vital Signs Date Time Temp Pulse Resp B/P (MAP) Pulse Ox O2 Delivery O2 Flow Rate FiO2 02/02/17 21:27 99 Room Air 02/02/17 21:00 76 168/102 (124) 02/02/17 17:40 98.1 24 98.1 Lab Values Laboratory Tests Test 02/02/17 19:45 White Blood Count 5.4 x10^3/uL (4.0-11.0) Red Blood Count 4.02 x10^6/uL (3.50-5.40) Hemoglobin 10.1 g/dL (12.0-15.5) L Hematocrit 31.5 % (36.0-47.0) L Mean Corpuscular Volume 78 fL (79-100) L Mean Corpuscular Hemoglobin 25 pg (25-35) Mean Corpuscular Hemoglobin Concent 32 g/dL (31-37) Red Cell Distribution Width 15.9 % (11.5-14.5) H Platelet Count 216 x10^3/uL (140-400) Neutrophils (%) (Auto) 52 % (31-73) Lymphocytes (%) (Auto) 38 % (24-48) Monocytes (%) (Auto) 8 % (0-9) Eosinophils (%) (Auto) 2 % (0-3) Basophils (%) (Auto) 0 % (0-3) Neutrophils # (Auto) 2.8 x10^3uL (1.8-7.7) Lymphocytes # (Auto) 2.0 x10^3/uL (1.0-4.8) Monocytes # (Auto) 0.4 x10^3/uL (0.0-1.1) Eosinophils # (Auto) 0.1 x10^3/uL (0.0-0.7) Basophils # (Auto) 0.0 x10^3/uL (0.0-0.2) Sodium Level 141 mmol/L (136-145) Potassium Level 3.7 mmol/L (3.5-5.1) Chloride Level 107 mmol/L (98-107) Carbon Dioxide Level 26 mmol/L (21-32) Anion Gap 8 (6-14) Blood Urea Nitrogen 12 mg/dL (7-20) Creatinine 0.7 mg/dL (0.6-1.0) Estimated GFR (Cockcroft-Gault) 113.9 BUN/Creatinine Ratio 17 (6-20) Glucose Level 89 mg/dL (70-99) Calcium Level 8.3 mg/dL (8.5-10.1) L Total Bilirubin 0.1 mg/dL (0.2-1.0) L Aspartate Amino Transferase (AST) 14 U/L (15-37) L Alanine Aminotransferase (ALT) 15 U/L (14-59) Alkaline Phosphatase 64 U/L (46-116) KE-Jsw-C-Type Natriuretic Peptide 244 pg/mL (0-124) H Total Protein 6.8 g/dL (6.4-8.2) Albumin 3.0 g/dL (3.4-5.0) L Albumin/Globulin Ratio 0.8 (1.0-1.7) L Laboratory Tests 02/02/17 19:45 Laboratory Tests 02/02/17 19:45 EKG EKG Interpreted by me: Normal sinus rhythm rate 84, no acute ST or T wave changes, normal intervals, no ectopy.[] Radiology/Procedures Radiology/Procedures Ordered venous ultrasound of the left lower extremity; patient departed before this test could be performed[] Course & Med Decision Making Course & Med Decision Making Pertinent Labs and Imaging studies reviewed. (See chart for details) The patient presents with foot & calf pain & swelling. Well appearing Obtained labs & ordered venous ultrasound to evaluate for DVT. The patient decided to leave the emergency department before she had her ultrasound. I was not able to give instructions or attempt to persuade her to stay for further evaluation. She was in stable condition when I last interacted with her. [] Dragon Disclaimer Dragon Disclaimer This electronic medical record was generated, in whole or in part, using a voice recognition dictation system. Departure Departure Impression: Primary Impression: Leg pain, left Disposition: AGAINST MEDICAL ADVICE Condition: STABLE Referrals: UNKNOWN PCP NAME (PCP) ASHLEY NIXON MD Feb 03, 2017 00:04
--- NOTE | 2017-02-03 07:16 | EKG ---
[facility] [address] [place] [address] Test Date: 2017-02-02 Test Time: 17:57:10 Pat Name: NASREEN URBANO Department: Room: Gender: F Sap Hana Architect: : [id number] Requested By: ASHLEY NIXON Order Number: [id number] Reading MD: Measurements Intervals [place] Rate: 84 P: 0 FL: 158 QRS: -3 QRSD: 82 T: 22 QT: 384 QTc: 457 Interpretive Statements SINUS RHYTHM LEFTWARD AXIS QRS(T) CONTOUR ABNORMALITY CANNOT RULE OUT ANTEROSEPTAL MYOCARDIAL DAMAGE RI6.01 Unconfirmed report No previous ECG available for comparison
== END 2017-02-02 21:57 | disposition left against medical advice (07) ==
LOC: ER 17:37
DX: M79.662 Pain in left lower leg (principal); M79.672 Pain in left foot; M79.89 Other specified soft tissue disorders; E66.9 Obesity, unspecified; I11.0 Hypertensive heart disease with heart failure; I50.9 Heart failure, unspecified; G43.909 Migraine, unspecified, not intractable, without status migrainosus; Z88.8 Allergy status to other drugs, medicaments and biological substances; Z88.5 Allergy status to narcotic agent; Z68.41 Body mass index [BMI] 40.0-44.9, adult; Z87.442 Personal history of urinary calculi
CPT/HCPCS: 36415; 80053; 83880; 85025; 93005; 99285-25

== ENCOUNTER 2017-03-15 20:12 | Emergency (ER) | payer MEDICARE, MEDICAID ==
[2017-03-13 13:14] VITALS: BP 171/115
== END 2017-03-15 20:20 | disposition left against medical advice (07) ==
LOC: ER 20:12
DX: R22.31 Localized swelling, mass and lump, right upper limb (principal); Z53.21 Procedure and treatment not carried out due to patient leaving prior to being seen by health care provider

== ENCOUNTER → 2017-03-18 | Outpatient (CLI) | payer MEDICARE, MEDICAID ==
[2017-03-13 13:14] VITALS: BP 171/115
--- NOTE | 2017-03-18 12:51 | RAD ---
Right axillary ultrasound, 03/18/2017: History: Axillary lump The right axilla was carefully scanned. Two smooth hypoechoic nodule with echogenic darío are evident, compatible with lymph nodes. The largest of these measures 2.3 x 1.1 cm. They do not show definite evidence of pathologic enlargement or tumor infiltration. No other abnormality is seen. IMPRESSION: 1. Benign-appearing right axillary lymph nodes as described above. Clinical surveillance is suggested. 2. Reportedly there is a family history of breast cancer. Screening mammography may be useful for further evaluation.
== END | disposition home or self-care (01) ==
LOC: US 11:44
PROVIDERS: ATTEND Surgery
DX: R22.30 Localized swelling, mass and lump, unspecified upper limb (principal); Z80.3 Family history of malignant neoplasm of breast
CPT/HCPCS: 76881

== ENCOUNTER 2017-03-26 18:54 | Emergency (ER) | payer MEDICARE, MEDICAID ==
[~2017-03-26] VITALS: Ht 175.3 cm; Wt 136.1 kg
[2017-03-26] MEDS ORDERED: NITROGLYCERIN SUBLINGUAL 0.4 MG BOTTLE OF 25. SL PRN (19:30)
[2017-03-26 19:32] LABS: BILIRUBIN,URINE NEGATIVE (NEG); GLUCOSE,URINE NEGATIVE (NEG); NITRITE,URINE NEGATIVE (NEG); PROTEIN,URINE >=300 mg/dL (NEG-TRACE); UROBILINOGEN,URINE 0.2 mg/dL (0.2 mg/dL)
--- NOTE | 2017-03-26 19:32 | ED.ADGEN ---
Past Medical History Past Medical History: CHF, Hypertension, Kidney Stone, Migraines, UTI, Other Additional Past Medical Histor: ENLARGED HEART, OVARIAN CYST,L5 herniated disc , dental abscesses, ear prob Past Surgical History: , Tubal ligation, Other Additional Past Surgical Histo: Laproscopy,D&C, herniated disc, CLOT REMOVAL FROM [facility] Alcohol Use: None Drug Use: None Adult General Chief Complaint Chief Complaint: CHEST PAIN HPI HPI Patient is a 37 year old woman, history of hypertension, CHF, hyperlipidemia, obesity, chronic migraines, chronic back pain, who presents to the emergency department with a complaint of "a weird feeling in my chest", that occurred last night. Patient states that feels like a "heaviness", in her chest, she states she's experienced previously when "I had fluid around my heart in my lungs". 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 She states she did follow-up with a flour blender helper at [facility]. She states her last echo was about a year ago. She denies any chest pain currently, states she was seen at her pain management physician's office yesterday, at that time her blood pressure was "200 over something", and she was told to "go to the emergency if I started feeling not right". She states currently that she is feeling fine, states that she did have mild shortness of breath associated with this heaviness occurred last night, it is worse when lying flat, states that she's had mild swelling in her legs as well. She states that she has been out of her blood pressure medications and her diuretic hypertensive "water pill", for about a month and a half due to complications with insurance which have recently been straightened out. She states that she has not filled medications at this time, states that she did take a Percocet and I Profen home prior to coming to the emergency department, and is not experiencing any discomfort at this time. She denies any recent travel or surgery, any history of DVT or PE, any nausea or vomiting, any focal weakness, numbness or tingling. Current blood pressure is 180/90, heart rate is in the 80s, oxygen saturation is 100% on room air, respiratory rate is 18 and unlabored. Review of Systems Review of Systems Constitutional: Denies fever or chills. [] Eyes: Denies change in visual acuity. [] HENT: Denies nasal congestion or sore throat. [] Respiratory: Denies cough or shortness of breath. [] Cardiovascular: Chest "heaviness", with mild swelling lower extremities. Mild shortness of breath. No symptoms currently. GI: Denies abdominal pain, nausea, vomiting, bloody stools or diarrhea. [] : Denies dysuria. [] Musculoskeletal: Denies back pain or joint pain. [] Integument: Denies rash. [] Neurologic: Denies headache, focal weakness or sensory changes. [] Endocrine: Denies polyuria or polydipsia. [] Lymphatic: Denies swollen glands. [] Psychiatric: Denies depression or anxiety. [] Current Medications Current Medications Current Medications Medications (Trade) Dose Ordered Sig/Ravinder Start Time Stop Time Status Last Admin Dose Admin Acetaminophen (Tylenol) 1,000 mg 1X ONCE 03/26/17 20:00 03/26/17 20:01 DC 03/26/17 19:52 1,000 MG Carvedilol (Coreg) 6.25 mg 1X ONCE 03/26/17 20:30 03/26/17 20:31 DC 03/26/17 20:17 6.25 MG Lisinopril (Prinivil) 20 mg 1X ONCE 03/26/17 20:30 03/26/17 20:31 DC 03/26/17 20:16 20 MG Nitroglycerin (Nitrostat) 0.4 mg PRN Q5MIN PRN 03/26/17 19:30 03/26/17 21:01 DC 03/26/17 19:42 0.4 MG Allergies Allergies Allergies Coded Allergies Type Severity Reaction Last Updated Verified naproxen Allergy Intermediate Sweat 11/30/13 Yes propoxyphene napsylate Allergy Intermediate Chest problem 11/30/13 Yes tramadol Allergy Intermediate Chest problem 03/24/16 Yes Physical Exam Physical Exam Constitutional: Well developed, well nourished, no acute distress, non-toxic appearance. [] HENT: Normocephalic, atraumatic, bilateral external ears normal, oropharynx moist, no oral exudates, nose normal. [] Eyes: PERRLA, EOMI, conjunctiva normal, no discharge. [] Neck: Normal range of motion, no tenderness, supple, no stridor. [] Cardiovascular:Heart rate regular rhythm, no murmur, S1, S2, rubs or gallops. Patient with mild reproducible anterior chest wall tenderness, no crepitus, no deformity, no lesions or other abnormalities identified. [] Lungs & Thorax: Bilateral breath sounds clear to auscultation, no wheezing, rhonchi, rales. [] Abdomen: Bowel sounds normal, obese, no rebound, rigidity, no guarding, soft, no tenderness, no masses, no pulsatile masses. [] Skin: Warm, dry, no erythema, no rash. [] Back: No tenderness, no CVA tenderness. [] Extremities: No tenderness, no cyanosis, no clubbing, ROM intact, no edema. Negative Homans sign. [] Neurologic: Alert and oriented X 3, normal motor function, normal sensory function, no focal deficits noted. [] Psychologic: Affect normal, judgement normal, mood normal. [] Current Patient Data Vital Signs Vital Signs Date Time Temp Pulse Resp B/P (MAP) Pulse Ox O2 Delivery O2 Flow Rate FiO2 03/26/17 20:47 80 16 161/94 (116) 96 Room Air 03/26/17 19:00 98.2 98.2 Lab Values Laboratory Tests Test 03/26/17 19:20 White Blood Count 5.1 x10^3/uL (4.0-11.0) Red Blood Count 4.18 x10^6/uL (3.50-5.40) Hemoglobin 10.3 g/dL (12.0-15.5) L Hematocrit 31.9 % (36.0-47.0) L Mean Corpuscular Volume 76 fL (79-100) L Mean Corpuscular Hemoglobin 25 pg (25-35) Mean Corpuscular Hemoglobin Concent 32 g/dL (31-37) Red Cell Distribution Width 15.6 % (11.5-14.5) H Platelet Count 261 x10^3/uL (140-400) Neutrophils (%) (Auto) 54 % (31-73) Lymphocytes (%) (Auto) 36 % (24-48) Monocytes (%) (Auto) 8 % (0-9) Eosinophils (%) (Auto) 1 % (0-3) Basophils (%) (Auto) 1 % (0-3) Neutrophils # (Auto) 2.7 x10^3uL (1.8-7.7) Lymphocytes # (Auto) 1.8 x10^3/uL (1.0-4.8) Monocytes # (Auto) 0.4 x10^3/uL (0.0-1.1) Eosinophils # (Auto) 0.1 x10^3/uL (0.0-0.7) Basophils # (Auto) 0.0 x10^3/uL (0.0-0.2) D-Dimer (Lluvia) 0.50 ug/mlFEU (0.00-0.50) Urine Collection Type Unknown Urine Color Yellow Urine Clarity Clear Urine pH 6.0 Urine Specific [place] >=1.030 Urine Protein >=300 mg/dL (NEG-TRACE) Urine Glucose (UA) Negative mg/dL (NEG) Urine Ketones (Stick) Negative mg/dL (NEG) Urine Blood Large (NEG) Urine Nitrite Negative (NEG) Urine Bilirubin Negative (NEG) Urine Urobilinogen Dipstick 0.2 mg/dL (0.2 mg/dL) Urine Leukocyte Esterase Negative (NEG) Urine RBC Occ /HPF (0-2) Urine WBC 1-4 /HPF (0-4) Urine Squamous Epithelial Cells Many /LPF Urine Amorphous Sediment Present /HPF Urine Bacteria Few /HPF (0-FEW) Urine Mucus Marked /LPF Sodium Level 141 mmol/L (136-145) Potassium Level 3.7 mmol/L (3.5-5.1) Chloride Level 107 mmol/L (98-107) Carbon Dioxide Level 24 mmol/L (21-32) Anion Gap 10 (6-14) Blood Urea Nitrogen 13 mg/dL (7-20) Creatinine 0.8 mg/dL (0.6-1.0) Estimated GFR (Cockcroft-Gault) 97.1 BUN/Creatinine Ratio 16 (6-20) Glucose Level 104 mg/dL (70-99) H Calcium Level 8.7 mg/dL (8.5-10.1) Total Bilirubin 0.2 mg/dL (0.2-1.0) Aspartate Amino Transferase (AST) 14 U/L (15-37) L Alanine Aminotransferase (ALT) 16 U/L (14-59) Alkaline Phosphatase 69 U/L (46-116) Troponin I Quantitative < 0.017 ng/mL (0.000-0.055) WY-Vkm-U-Type Natriuretic Peptide 118 pg/mL (0-124) Total Protein 7.3 g/dL (6.4-8.2) Albumin 3.3 g/dL (3.4-5.0) L Albumin/Globulin Ratio 0.8 (1.0-1.7) L Lipase 63 U/L (73-393) L Urine Opiates Screen Pos (NEG) Urine Methadone Screen Neg (NEG) Urine Barbiturates Neg (NEG) Urine Phencyclidine Screen Neg (NEG) Urine Amphetamine/Methamphetamine Neg (NEG) Urine Benzodiazepines Screen Neg (NEG) Urine Cocaine Screen Neg (NEG) Urine Cannabinoids Screen Neg (NEG) Urine Ethyl Alcohol Neg (NEG) Laboratory Tests 03/26/17 19:20 Laboratory Tests 03/26/17 19:20 EKG EKG EC: Sinus rhythm, heart rate 100 bpm, upright axis, with moderate baseline artifact, QTC is slightly prolonged at 504, GA 1:30, QRS of 90, no ST elevations or depressions, abnormal ECG, does not meet STEMI criteria. As interpreted by me.[] Radiology/Procedures Radiology/Procedures Chest x-ray: One view: Normal cardiopulmonary silhouette, no infiltrates, no effusions, no pneumothorax, no soft tissue or bony abnormalities identified. Course & Med Decision Making Course & Med Decision Making Pertinent Labs and Imaging studies reviewed. (See chart for details) Patient well-appearing, asymptomatic, oxygen saturation is 98% to 100% on room air, respiratory rate is unlabored, heart rate is in the 80s on my evaluation, noted to have a heart rate of 100 on her ECG. No concerning findings identified ECG, there is moderate baseline artifact. Chest x-ray unremarkable, patient's laboratory studies not reveal any concerning findings. I did discuss this with patient, she is relieved with these findings, and is requesting that she be given a dose of blood pressure medication, and a prescription, states that she will be able to follow-up with her primary care provider. No evidence of concerning cardiac or pulmonary disease in the patient's history or evaluation, it sounds as though her episode of congestive heart failure was diagnosed with state, she is no evidence of congestive heart failure other concerning finding is at this time. Therefore, discussion at bedside, plan is for patient to follow-up with her primary care provider for additional evaluation, at this time we'll discharge with a dose of carvedilol and lisinopril in the ED, and patient be given a prescription of carvedilol and lisinopril, along with clear and equal return instructions which she voiced understanding and agreement. Patient discharged in the emergency department with plan and precautions as above. Dragon Disclaimer Dragon Disclaimer This electronic medical record was generated, in whole or in part, using a voice recognition dictation system. Departure Impression: Primary Impression: HTN (hypertension) Disposition: HOME, SELF-CARE Condition: IMPROVED Scripts Lisinopril (LISINOPRIL) 20 Mg Tablet 1 TAB PO DAILY, #15 TAB 0 Refills Prov: MARY ANN BRANNON DO 03/26/17 Carvedilol (CARVEDILOL) 6.25 Mg Tablet 1 TAB PO BID, #30 TAB 0 Refills Prov: MARY ANN BRANNON DO 03/26/17 MARY ANN BRANNON DO Mar 26, 2017 19:32
[2017-03-26 19:33] LABS: BASO % 1 % (0-3); EOS % 1 % (0-3); HEMATOCRIT 31.9 % (36.0-47.0); HEMOGLOBIN 10.3 g/dL (12.0-15.5); LYMPH # 1.8 x10^3/uL (1.0-4.8); LYMPH % 36 % (24-48); MEAN CORPUSCULAR HEMOGLOBIN 25 pg (25-35); MEAN CORPUSCULAR HGB CONC 32 g/dL (31-37); MEAN CORPUSCULAR VOLUME 76 fL (79-100); MONO % 8 % (0-9); NEUT % 54 % (31-73); PLATELET COUNT 261 x10^3/uL (140-400); RED BLOOD COUNT 4.18 x10^6/uL (3.50-5.40); RED CELL DISTRIBUTION WIDTH 15.6 % (11.5-14.5); WHITE BLOOD COUNT 5.1 x10^3/uL (4.0-11.0)
[2017-03-26 19:39] LABS: BACTERIA,URINE FEW /HPF (0-FEW); RBC,URINE OCC /HPF (0-2); SQUAMOUS EPITHELIAL CELL,UR MANY /LPF
[2017-03-26 19:40] LABS: BARBITURATES NEG (NEG); BENZODIAZEPINES NEG (NEG); CANNABINOIDS NEG (NEG); COCAINE NEG (NEG); METHADONE NEG (NEG); OPIATES POS (NEG); PHENCYCLIDINE NEG (NEG)
[2017-03-26 19:44] LABS: CALCIUM 8.7 mg/dL (8.5-10.1); CREATININE 0.8 mg/dL (0.6-1.0); GFR 97.1; POTASSIUM 3.7 mmol/L (3.5-5.1)
[2017-03-26 19:50] LABS: ALBUMIN 3.3 g/dL (3.4-5.0); ALBUMIN/GLOBULIN RATIO 0.8 (1.0-1.7); TOTAL BILIRUBIN 0.2 mg/dL (0.2-1.0); TOTAL PROTEIN 7.3 g/dL (6.4-8.2)
[2017-03-26] MEDS ORDERED: ACETAMINOPHEN 500 MG TABLET PO ONE (20:00)
[2017-03-26] MEDS ORDERED: CARV6.252 PO (20:14)
[2017-03-26] MEDS ORDERED: LISI-334 PO (20:14)
[2017-03-26] MEDS ORDERED: CARVEDILOL 6.25 MG TABLET. PO ONE (20:30)
[2017-03-26] MEDS ORDERED: LISINOPRIL 10 MG TABLET PO ONE (20:30)
[2017-03-26 20:47] VITALS: BP 161/94
--- NOTE | 2017-03-27 08:21 | RAD ---
Single view of the Chest 03/26/2017 9:17 PM Indication: Chest pain, shortness of breath Comparison: Chest radiograph October 22, 2016 Findings: There is no focal consolidation or infiltrate identified. There is no effusion or pneumothorax. The cardiomediastinal silhouette and pulmonary vasculature are within normal limits. No osseous abnormality is identified. Impression: No evidence of acute cardiopulmonary process.
--- NOTE | 2017-03-27 09:09 | EKG ---
[facility] [address] [place] [address] Test Date: 2017-03-26 Test Time: 19:07:13 Pat Name: NASREEN URBANO Department: Room: Gender: F Block Piler: : 1980 Requested By: MARY ANN BRANNON Order Number: [id number] Reading MD: Measurements Intervals [place] Rate: 100 P: 34 VT: 130 QRS: 6 QRSD: 90 T: 54 QT: 388 QTc: 504 Interpretive Statements SINUS RHYTHM ATRIAL PREMATURE COMPLEX(ES) PROLONGED QT NO SPECIFIC ECG ABNORMALITIES RI6.01 No previous ECG available for comparison
== END 2017-03-26 20:55 | disposition home or self-care (01) ==
LOC: ER 18:54
DX: I11.0 Hypertensive heart disease with heart failure (principal); I50.9 Heart failure, unspecified; G43.909 Migraine, unspecified, not intractable, without status migrainosus; E78.5 Hyperlipidemia, unspecified; G89.29 Other chronic pain; E66.9 Obesity, unspecified; Z87.442 Personal history of urinary calculi; Z68.41 Body mass index [BMI] 40.0-44.9, adult; Z79.899 Other long term (current) drug therapy; Z88.5 Allergy status to narcotic agent; Z88.8 Allergy status to other drugs, medicaments and biological substances; Z87.440 Personal history of urinary (tract) infections
CPT/HCPCS: 36415; 71010; 80053; 80307; 81001; 83690; 83880; 84484; 85025; 85379; 93005; 99285-25; G0479

== ENCOUNTER 2017-04-12 18:28 | Emergency (ER) | payer MEDICARE, MEDICAID ==
[~2017-04-12] VITALS: Ht 175.3 cm; Wt 136.5 kg
[~2017-04-12 18:28] MED LIST changes: +CARV6.252 PO
[2017-04-12 19:30] VITALS: BP 176/111
--- NOTE | 2017-04-12 20:09 | PHYS DOC ---
Past Medical History Past Medical History: CHF, Hypertension, Kidney Stone, Migraines, UTI, Other Additional Past Medical Histor: ENLARGED HEART, OVARIAN CYST,L5 herniated disc , dental abscesses, ear prob Past Surgical History: , Tubal ligation, Other Additional Past Surgical Histo: Laproscopy,D&C, herniated disc, CLOT REMOVAL FROM [facility] Alcohol Use: None Drug Use: None Adult General Chief Complaint Chief Complaint: ABSCESS HPI HPI Patient is a 37 year old female with a history of kidney stones, hypertension, migraine headaches, drug-seeking behavior, who presents today complaining of cysts in her right axilla which she's had for 3 months. She states she's been following up with Dr. Malhotra the general surgeon who did an ultrasound sometime in March 2017, patient states she does not know the results of the ultrasound. Patient states the pain is severe today and she would like something for pain. Review of Systems Review of Systems Constitutional: Denies fever or chills [] Musculoskeletal: Denies back pain or joint pain [] Integument: Right axilla cyst Neurologic: Denies headache, focal weakness or sensory changes [] All other systems were reviewed and found to be within normal limits, except as documented in this note. Allergies Allergies Allergies Coded Allergies Type Severity Reaction Last Updated Verified naproxen Allergy Intermediate Sweat 11/30/13 Yes propoxyphene napsylate Allergy Intermediate Chest problem 11/30/13 Yes tramadol Allergy Intermediate Chest problem 03/24/16 Yes Physical Exam Physical Exam Constitutional: Well developed, well nourished, no acute distress, non-toxic appearance. [] Skin: Warm, dry, right axilla with an none indurated palpable mass approximately 2 x 1 cm. The mass is suspicions lymphadenopathy. There is no warmth or redness to the area. Back: No tenderness, no CVA tenderness. [] Extremities: No tenderness, no cyanosis, no clubbing, ROM intact, no edema. [] Neurologic: Alert and oriented X 3, normal motor function, normal sensory function, no focal deficits noted. [] Psychologic: Affect normal, judgement normal, mood normal. [] Current Patient Data Vital Signs Vital Signs Date Time Temp Pulse Resp B/P (MAP) Pulse Ox O2 Delivery O2 Flow Rate FiO2 04/12/17 19:30 98.5 91 20 99 Room Air 98.5 EKG EKG [] Radiology/Procedures Radiology/Procedures [] Course & Med Decision Making Course & Med Decision Making Pertinent Labs and Imaging studies reviewed. (See chart for details) Patient has right axilla lymphadenopathy which she has been following up with Dr. Malhotra. She is well known to this ED for drug seeking behavior and presents today asking for pain medicine. Instructed to take Tylenol/Motrin over-the- counter. Informed her we will not give her any prescription for narcotics for lymphadenopathy. patient eloped from the ED. Dragon Disclaimer Dragon Disclaimer This electronic medical record was generated, in whole or in part, using a voice recognition dictation system. Departure Departure Impression: Primary Impression: Lymphadenopathy, axillary Disposition: HOME, SELF-CARE Condition: STABLE Referrals: NON,STAFF (PCP) ARNOLD MALHOTRA MD Call his office tomorrow for follow up appointment Additional Instructions: You were seen with enlarged lymph node on the right axilla. Please follow-up with the general surgeon Dr. Malhotra. Call his office tomorrow for tomorrow for a follow up appointment. Take [id number] pain medicines as needed. We gave you a prescription for Tylenol as needed for pain. Scripts Acetaminophen (TYLENOL) 325 Mg Tablet 1-2 TAB PO Q6HRS Y for PAIN, #20 TAB 0 Refills Prov: GINNY STERN APRN 04/12/17 GINNY STERN APRN Apr 12, 2017 20:09
[2017-04-12] MEDS ORDERED: ACET325T9 PO (20:13)
== END 2017-04-12 20:20 | disposition home or self-care (01) ==
LOC: ER 18:28
DX: R59.0 Localized enlarged lymph nodes (principal); I11.0 Hypertensive heart disease with heart failure; I50.9 Heart failure, unspecified; G43.909 Migraine, unspecified, not intractable, without status migrainosus; Z87.442 Personal history of urinary calculi; Z87.440 Personal history of urinary (tract) infections; Z88.5 Allergy status to narcotic agent; Z88.8 Allergy status to other drugs, medicaments and biological substances
CPT/HCPCS: 99282

== ENCOUNTER 2017-05-04 15:21 | Emergency (ER) | payer MEDICARE, MEDICAID ==
[2017-05-04 15:47] LABS: URINE HCG POC HCG NEGATIVE (Negative)
[2017-05-04 15:47] LABS: BILIRUBIN,URINE NEGATIVE (NEG); COLOR,URINE YELLOW; GLUCOSE,URINE NEGATIVE (NEG); NITRITE,URINE NEGATIVE (NEG); PH,URINE 6.5; PROTEIN,URINE NEGATIVE (NEG-TRACE); UROBILINOGEN,URINE 0.2 mg/dL (0.2 mg/dL)
[2017-05-04 15:52] LABS: CLARITY,URINE CLEAR
[2017-05-04 15:54] LABS: BACTERIA,URINE FEW /HPF (0-FEW); RBC,URINE 0 /HPF (0-2); SQUAMOUS EPITHELIAL CELL,UR MOD /LPF; WBC,URINE 0 /HPF (0-4)
== END 2017-05-04 17:10 | disposition left against medical advice (07) ==
LOC: ER 15:21
DX: R10.30 Lower abdominal pain, unspecified (principal); R10.2 Pelvic and perineal pain; N94.89 Other specified conditions associated with female genital organs and menstrual cycle; I11.0 Hypertensive heart disease with heart failure; G43.909 Migraine, unspecified, not intractable, without status migrainosus; I50.9 Heart failure, unspecified; Z87.442 Personal history of urinary calculi
CPT/HCPCS: 81001; 81025; 99283

== ENCOUNTER 2017-06-27 17:35 | Emergency (ER) | payer MEDICARE, MEDICAID | END 2017-06-27 18:03 | disposition home or self-care (01) | LOC: ER 17:35 | DX: R59.0 Localized enlarged lymph nodes (principal); I11.0 Hypertensive heart disease with heart failure; I50.9 Heart failure, unspecified; G43.909 Migraine, unspecified, not intractable, without status migrainosus; Z87.440 Personal history of urinary (tract) infections; Z87.442 Personal history of urinary calculi; Z88.5 Allergy status to narcotic agent; Z88.8 Allergy status to other drugs, medicaments and biological substances | CPT/HCPCS: 99283 ==

== ENCOUNTER 2017-07-16 20:33 | Emergency (ER) | payer MEDICARE, MEDICAID ==
[2017-07-16] MEDS: IBUPROFEN 800 MG TABLET. PO (21:30)
== END 2017-07-16 21:30 | disposition home or self-care (01) ==
LOC: ER 20:33
DX: H92.02 Otalgia, left ear (principal); G89.29 Other chronic pain; I11.0 Hypertensive heart disease with heart failure; I50.9 Heart failure, unspecified; G43.909 Migraine, unspecified, not intractable, without status migrainosus; Z98.51 Tubal ligation status; Z98.890 Other specified postprocedural states; Z87.442 Personal history of urinary calculi; Z87.440 Personal history of urinary (tract) infections; Z88.5 Allergy status to narcotic agent; Z88.6 Allergy status to analgesic agent; Z88.8 Allergy status to other drugs, medicaments and biological substances
CPT/HCPCS: 99282

== ENCOUNTER 2017-09-28 18:59 | Emergency (ER) | payer MEDICARE, MEDICAID | END 2017-09-28 19:20 | disposition left against medical advice (07) | LOC: ER 18:59 | DX: K08.89 Other specified disorders of teeth and supporting structures (principal); Z53.21 Procedure and treatment not carried out due to patient leaving prior to being seen by health care provider ==

== ENCOUNTER 2017-11-06 19:16 | Emergency (ER) | payer MEDICARE, MEDICAID ==
[2017-11-06 19:43] LABS: URINE HCG POC HCG NEGATIVE (Negative)
[2017-11-06 19:48] LABS: ADD MAN DIFF? NO
[2017-11-06 19:50] LABS: BASO % 0 % (0-3); EOS # 0.1 x10^3/uL (0.0-0.7); EOS % 1 % (0-3); HEMATOCRIT 33.8 % (36.0-47.0); HEMOGLOBIN 10.8 g/dL (12.0-15.5); LYMPH # 1.9 x10^3/uL (1.0-4.8); LYMPH % 35 % (24-48); MEAN CORPUSCULAR HEMOGLOBIN 25 pg (25-35); MEAN CORPUSCULAR HGB CONC 32 g/dL (31-37); MEAN CORPUSCULAR VOLUME 77 fL (79-100); MONO # 0.4 x10^3/uL (0.0-1.1); MONO % 7 % (0-9); NEUT # 3.2 x10^3uL (1.8-7.7); NEUT % 57 % (31-73); PLATELET COUNT 263 x10^3/uL (140-400); RED CELL DISTRIBUTION WIDTH 15.6 % (11.5-14.5); WHITE BLOOD COUNT 5.6 x10^3/uL (4.0-11.0)
[2017-11-06 19:54] LABS: BILIRUBIN,URINE NEGATIVE (NEG); CLARITY,URINE CLEAR; COLOR,URINE YELLOW; GLUCOSE,URINE NEGATIVE (NEG); NITRITE,URINE NEGATIVE (NEG); PROTEIN,URINE NEGATIVE (NEG-TRACE)
[2017-11-06 19:57] LABS: ANION GAP 6 (6-14); BLOOD UREA NITROGEN 15 mg/dL (7-20); BUN/CREATININE RATIO 19 (6-20); CALCIUM 8.9 mg/dL (8.5-10.1); CARBON DIOXIDE 28 mmol/L (21-32); CHLORIDE 106 mmol/L (98-107); CREATININE 0.8 mg/dL (0.6-1.0); GFR 97.1; GLUCOSE 103 mg/dL (70-99); POTASSIUM 3.5 mmol/L (3.5-5.1); SODIUM 140 mmol/L (136-145)
[2017-11-06] MEDS: MORPHINE SULFATE 4 MG/ML DISP.SYRIN. IV (20:03)
[2017-11-06] MEDS: ONDANSETRON PF 4 MG/2 ML VIAL. IV (20:03)
[2017-11-06 20:05] LABS: ALBUMIN 3.3 g/dL (3.4-5.0); ALBUMIN/GLOBULIN RATIO 0.8 (1.0-1.7); ALK PHOS 84 U/L (46-116); ALT (SGPT) 15 U/L (14-59); AST (SGOT) 15 U/L (15-37); TOTAL BILIRUBIN 0.1 mg/dL (0.2-1.0); TOTAL PROTEIN 7.5 g/dL (6.4-8.2)
[2017-11-06 20:20] LABS: BACTERIA,URINE FEW /HPF (0-FEW); RBC,URINE OCC /HPF (0-2); SQUAMOUS EPITHELIAL CELL,UR MOD /LPF; WBC,URINE OCC /HPF (0-4)
== END 2017-11-06 21:30 | disposition home or self-care (01) ==
LOC: ER 19:16
DX: R10.9 Unspecified abdominal pain (principal); I11.0 Hypertensive heart disease with heart failure; I50.9 Heart failure, unspecified; G43.909 Migraine, unspecified, not intractable, without status migrainosus; Z87.440 Personal history of urinary (tract) infections; Z87.442 Personal history of urinary calculi; Z98.890 Other specified postprocedural states; Z98.51 Tubal ligation status; Z88.6 Allergy status to analgesic agent; Z88.8 Allergy status to other drugs, medicaments and biological substances
CPT/HCPCS: 36415; 74176; 80053; 81001; 81025; 85025; 96374; 96375; 99285-25; J2270; J2405

== ENCOUNTER 2017-12-16 16:41 | Emergency (ER) | payer MEDICARE, MEDICAID ==
[~2017-12-16] VITALS: Ht 175.3 cm; Wt 136.1 kg
[~2017-12-16 16:41] MED LIST changes: +ACET325T9 PO; +LISI1TAB5 PO; +NEOM10DR32 EACH EAR; +OXYC1TAB7 PO; +Pantoprazole PO; +TEMA15CA PO
[2017-12-16 18:05] VITALS: BP 136/86
[2017-12-16] MEDS ORDERED: IV NORMAL SALINE 1000ML BAG 1,000 ML IV SCH (18:25)
[2017-12-16] MEDS ORDERED: KETOROLAC 30 MG/ML VIAL. IV ONE (18:30)
--- NOTE | 2017-12-16 18:30 | PHYS DOC ---
Past Medical History Past Medical History: CHF, Hypertension, Kidney Stone, Migraines, UTI, Other Additional Past Medical Histor: ENLARGED HEART, OVARIAN CYST,L5 herniated disc , dental abscesses, ear prob Past Surgical History: , Tubal ligation, Other Additional Past Surgical Histo: Laproscopy,D&C, herniated disc, CLOT REMOVAL FROM [facility] Smoking: Cigarettes (The patient is a nonsmoker.) Alcohol Use: None Drug Use: None Adult General Chief Complaint Chief Complaint: FLANK PAIN HPI HPI Patient is a 37-year-old female who presents to the emergency department for evaluation. She states that since this past Thursday she has been having left flank pain, radiating towards her left groin, similar to her prior kidney stones. She states she's had multiple episodes of kidney stone in the past and this feels somewhat similar. She denies any fevers or chills, she has had some hematuria without dysuria, and has passed a few small stones. She has not had any nausea, vomiting, diarrhea, and denies that she is , stating a prior tubal ligation. She is not currently on her menses. There are no alleviating, or exacerbating factors to her symptoms. She states she has an appointment for follow-up with urology in February for possible stent placement she has had a 4 cm, possibly intrarenal stone, on her last CT scan, which was about 6 months ago. Review of Systems Review of Systems Constitutional: Denies fever or chills [] Eyes: Denies change in visual acuity, redness, or eye pain [] HENT: Denies nasal congestion or sore throat [] Respiratory: Denies cough or shortness of breath [] Cardiovascular: The patient denies any shortness of breath, chest pain, palpitations, or orthopnea [] GI: Denies nausea, vomiting, bloody stools or diarrhea [] : Denies dysuria or noted frequency, vaginal bleeding or discharge[] Musculoskeletal: Denies back pain or joint pain [] Integument: Denies rash or skin lesions [] Neurologic: Denies headache, focal weakness or sensory changes [] Endocrine: Denies polyuria or polydipsia [] All other systems were reviewed and found to be within normal limits, except as documented in this note. Current Medications Current Medications Current Medications Medications (Trade) Dose Ordered Sig/Ravinder Start Time Stop Time Status Last Admin Dose Admin Ketorolac Tromethamine (Toradol 30mg Vial) 30 mg 1X ONCE 12/16/17 18:30 12/16/17 18:35 DC 12/16/17 18:46 30 MG Sodium Chloride 1,000 ml @ 1,000 mls/hr Q1H 12/16/17 18:25 12/16/17 19:24 DC 12/16/17 18:45 1,000 MLS/HR Allergies Allergies Allergies Coded Allergies Type Severity Reaction Last Updated Verified naproxen Allergy Intermediate Sweat 12/16/17 Yes propoxyphene napsylate Allergy Intermediate Chest problem 12/16/17 Yes tramadol Allergy Intermediate Chest problem 12/16/17 Yes Physical Exam Physical Exam PHYSICAL EXAM: CONSTITUTIONAL: Well developed, well nourished HEAD: normocephalic, atraumatic EENT: PERRL, EOMI. Conjunctivae normal color, sclerae non-icteric; moist mucous membranes. NECK: Supple, non-tender; no meningismus. LUNGS: Lungs CTA, breathing even and unlabored. Normal air movement. HEART: Regular rate and rhythm, no murmur CHEST: No deformity; non-tender ABDOMEN: The abdomen is soft, there is mild tenderness to palpation diffusely on the left side of the abdomen, without rebound or guarding, normal bowel sounds are present, the patient's abdominal girth does somewhat limited examination, no masses or bruits. EXTREM: Normal ROM; no deformity, no calf tenderness. Normal pulses palpable in all extremities. There is no pedal edema. SKIN: No rash; no diaphoresis NEURO: Alert; normal speech and cognition; CN's grossly intact; strength grossly intact without focal deficit. BACK: There is mild left-sided CVA TTP. Current Patient Data Vital Signs Vital Signs Date Time Temp Pulse Resp B/P (MAP) Pulse Ox O2 Delivery O2 Flow Rate FiO2 12/16/17 18:05 98.0 88 20 136/86 (103) 98 Room Air 98.0 Lab Values Laboratory Tests Test 12/16/17 18:00 12/16/17 18:09 12/16/17 18:35 Urine Collection Type Unknown Urine Color Yellow Urine Clarity Clear Urine pH 6.0 Urine Specific [place] 1.020 Urine Protein Negative mg/dL (NEG-TRACE) Urine Glucose (UA) Negative mg/dL (NEG) Urine Ketones (Stick) Negative mg/dL (NEG) Urine Blood Negative (NEG) Urine Nitrite Negative (NEG) Urine Bilirubin Negative (NEG) Urine Urobilinogen Dipstick 0.2 mg/dL (0.2 mg/dL) Urine Leukocyte Esterase Negative (NEG) Urine RBC Occ /HPF (0-2) Urine WBC Occ /HPF (0-4) Urine Squamous Epithelial Cells Mod /LPF Urine Bacteria Few /HPF (0-FEW) Urine Mucus Mod /LPF POC Urine HCG, Qualitative Hcg negative (Negative) White Blood Count 5.6 x10^3/uL (4.0-11.0) Red Blood Count 4.34 x10^6/uL (3.50-5.40) Hemoglobin 10.7 g/dL (12.0-15.5) L Hematocrit 33.1 % (36.0-47.0) L Mean Corpuscular Volume 76 fL (79-100) L Mean Corpuscular Hemoglobin 25 pg (25-35) Mean Corpuscular Hemoglobin Concent 32 g/dL (31-37) Red Cell Distribution Width 15.4 % (11.5-14.5) H Platelet Count 281 x10^3/uL (140-400) Neutrophils (%) (Auto) 59 % (31-73) Lymphocytes (%) (Auto) 33 % (24-48) Monocytes (%) (Auto) 6 % (0-9) Eosinophils (%) (Auto) 1 % (0-3) Basophils (%) (Auto) 1 % (0-3) Neutrophils # (Auto) 3.3 x10^3uL (1.8-7.7) Lymphocytes # (Auto) 1.9 x10^3/uL (1.0-4.8) Monocytes # (Auto) 0.3 x10^3/uL (0.0-1.1) Eosinophils # (Auto) 0.0 x10^3/uL (0.0-0.7) Basophils # (Auto) 0.0 x10^3/uL (0.0-0.2) Sodium Level 139 mmol/L (136-145) Potassium Level 3.4 mmol/L (3.5-5.1) L Chloride Level 105 mmol/L (98-107) Carbon Dioxide Level 23 mmol/L (21-32) Anion Gap 11 (6-14) Blood Urea Nitrogen 9 mg/dL (7-20) Creatinine 0.8 mg/dL (0.6-1.0) Estimated GFR (Cockcroft-Gault) 97.1 BUN/Creatinine Ratio 11 (6-20) Glucose Level 90 mg/dL (70-99) Calcium Level 9.1 mg/dL (8.5-10.1) Total Bilirubin 0.4 mg/dL (0.2-1.0) Aspartate Amino Transferase (AST) 14 U/L (15-37) L Alanine Aminotransferase (ALT) 14 U/L (14-59) Alkaline Phosphatase 80 U/L (46-116) Total Protein 7.9 g/dL (6.4-8.2) Albumin 3.4 g/dL (3.4-5.0) Albumin/Globulin Ratio 0.8 (1.0-1.7) L Lipase 63 U/L (73-393) L Laboratory Tests 12/16/17 18:35 Laboratory Tests 12/16/17 18:35 EKG EKG [] Radiology/Procedures Radiology/Procedures [PROCEDURE: CT ABDOMEN PELVIS WO CONTRAST Abdominal and Pelvis CT, Without Contrast: History: Left flank pain. Comparison: None. Procedure: Axial images are obtained of the abdomen and pelvis, without IV or oral contrast. CT Abdomen without Contrast: Findings: Evaluation of solid organs is limited without contrast. Evaluation of stomach and bowel is limited without oral contrast. Liver: Normal. Spleen: Normal. Pancreas: Normal. Adrenal Glands: Normal. Kidneys: Small nonobstructive stones bilaterally. There is no free air or free fluid. There is no lymphadenopathy. Impression: Please see CT Pelvis without Contrast. End Impression. CT Pelvis without Contrast: Findings: The urinary bladder appears normal. There is no free fluid. There is no lymphadenopathy. There is no pericolonic inflammation identified. The appendix is not seen. Impression: Small nonobstructive stones in the renal pelvises. No acute findings. The patient has had 12 CTs at this facility alone. The patient should be cautioned as to the increased risk of radiation-induced cancers. End impression] Course & Med Decision Making Course & Med Decision Making Pertinent Labs and Imaging studies reviewed. (See chart for details) [8:35 PM: The patient's condition remains a stable. She told me that she is from [place] and just in this area visiting her boyfriend, so I did not look her prior records but it appears that she has been seen in this emergency department multiple times for flank pain. I did caution the patient about the risks of ongoing CT scans and radiation, and I discussed importance of close follow-up with her urologist as previously scheduled in the coming weeks. We discussed return precautions. Dragon Disclaimer Dragon Disclaimer This electronic medical record was generated, in whole or in part, using a voice recognition dictation system. Departure Departure Impression: Primary Impression: Flank pain Disposition: HOME, SELF-CARE Condition: STABLE Referrals: UNKNOWN PCP NAME (PCP) Patient Instructions: Flank Pain Additional Instructions: Follow-up with your urologist as previously scheduled. Scripts Diclofenac Sodium (DICLOFENAC SODIUM) 50 Mg Tablet.dr 1 TAB PO BID, #20 TAB 0 Refills Prov: NEIL LYNCH MD 12/16/17 NEIL LYNCH MD Dec 16, 2017 18:30
[2017-12-16 18:33] LABS: BILIRUBIN,URINE NEGATIVE (NEG); CLARITY,URINE CLEAR; COLOR,URINE YELLOW; NITRITE,URINE NEGATIVE (NEG); PROTEIN,URINE NEGATIVE (NEG-TRACE); UROBILINOGEN,URINE 0.2 mg/dL (0.2 mg/dL)
[2017-12-16 18:41] LABS: BACTERIA,URINE FEW /HPF (0-FEW); RBC,URINE OCC /HPF (0-2); SQUAMOUS EPITHELIAL CELL,UR MOD /LPF; WBC,URINE OCC /HPF (0-4)
[2017-12-16 18:45] LABS: BASO % 1 % (0-3); EOS % 1 % (0-3); HEMATOCRIT 33.1 % (36.0-47.0); HEMOGLOBIN 10.7 g/dL (12.0-15.5); LYMPH # 1.9 x10^3/uL (1.0-4.8); LYMPH % 33 % (24-48); MEAN CORPUSCULAR HEMOGLOBIN 25 pg (25-35); MEAN CORPUSCULAR HGB CONC 32 g/dL (31-37); MEAN CORPUSCULAR VOLUME 76 fL (79-100); MONO # 0.3 x10^3/uL (0.0-1.1); MONO % 6 % (0-9); NEUT # 3.3 x10^3uL (1.8-7.7); NEUT % 59 % (31-73); PLATELET COUNT 281 x10^3/uL (140-400); RED BLOOD COUNT 4.34 x10^6/uL (3.50-5.40); RED CELL DISTRIBUTION WIDTH 15.4 % (11.5-14.5); WHITE BLOOD COUNT 5.6 x10^3/uL (4.0-11.0)
[2017-12-16 19:06] LABS: CALCIUM 9.1 mg/dL (8.5-10.1); CREATININE 0.8 mg/dL (0.6-1.0); GFR 97.1; POTASSIUM 3.4 mmol/L (3.5-5.1)
[2017-12-16 19:09] LABS: ALBUMIN 3.4 g/dL (3.4-5.0); ALBUMIN/GLOBULIN RATIO 0.8 (1.0-1.7); TOTAL BILIRUBIN 0.4 mg/dL (0.2-1.0); TOTAL PROTEIN 7.9 g/dL (6.4-8.2)
--- NOTE | 2017-12-16 20:27 | RAD ---
Abdominal and Pelvis CT, Without Contrast: History: Left flank pain. Comparison: None. Procedure: Axial images are obtained of the abdomen and pelvis, without IV or oral contrast. CT Abdomen without Contrast: Findings: Evaluation of solid organs is limited without contrast. Evaluation of stomach and bowel is limited without oral contrast. Liver: Normal. Spleen: Normal. Pancreas: Normal. Adrenal Glands: Normal. Kidneys: Small nonobstructive stones bilaterally. There is no free air or free fluid. There is no lymphadenopathy. Impression: Please see CT Pelvis without Contrast. End Impression. CT Pelvis without Contrast: Findings: The urinary bladder appears normal. There is no free fluid. There is no lymphadenopathy. There is no pericolonic inflammation identified. The appendix is not seen. Impression: Small nonobstructive stones in the renal pelvises. No acute findings. The patient has had 12 CTs at this facility alone. The patient should be cautioned as to the increased risk of radiation-induced cancers. End impression PQRS Compliance Statement: One or more of the following individualized dose reduction techniques were utilized for this examination: 1. Automated exposure control 2. Adjustment of the mA and/or kV according to patient size 3. Use of iterative reconstruction technique Electronically signed by: Alexis Og III, MD (12/16/2017 8:23 PM) [facility]
[2017-12-16] MEDS ORDERED: DICL50TA4 PO (20:37)
== END 2017-12-16 20:51 | disposition home or self-care (01) ==
LOC: ER 16:41
DX: R10.84 Generalized abdominal pain (principal); I11.0 Hypertensive heart disease with heart failure; I50.9 Heart failure, unspecified; G43.909 Migraine, unspecified, not intractable, without status migrainosus; Z87.440 Personal history of urinary (tract) infections; Z87.442 Personal history of urinary calculi; Z98.890 Other specified postprocedural states; Z98.51 Tubal ligation status; Z88.5 Allergy status to narcotic agent; Z88.6 Allergy status to analgesic agent; Z88.8 Allergy status to other drugs, medicaments and biological substances
CPT/HCPCS: 36415; 74176; 80053; 81001; 81025; 83690; 85025; 96374; 99285; J1885; J7030

== ENCOUNTER 2019-02-06 11:16 | Emergency (ER) | payer MEDICARE, MEDICAID ==
[~2019-02-06] VITALS: Ht 175.3 cm; Wt 136.1 kg
[~2019-02-06 11:16] MED LIST changes: +CARV12.511 PO; -CARV12.52 PO; +CARV6.2511 PO; -CARV6.252 PO; +DICL50TA4 PO; -HYDR-2758 PO; +HYDR-2761 PO; +HYDR-3164 PO; -HYDR-971 PO; +LISI1TAB19 PO; -LISI1TAB5 PO; +OXYC5TAB4 PO; -OXYC5TAB95 PO
[2019-02-06 11:40] VITALS: BP 199/107
[2019-02-06] MEDS ORDERED: AMOX875T PO (12:34)
--- NOTE | 2019-02-06 12:34 | PHYS DOC ---
Past Medical History Past Medical History: CHF, Hypertension, Kidney Stone, Migraines, UTI, Other Additional Past Medical Histor: ENLARGED HEART, OVARIAN CYST,L5 herniated disc, dental abscesses, ear prob Past Surgical History: Cholecystectomy, , Tubal ligation, Other Additional Past Surgical Histo: Laproscopy,D&C, herniated disc, CLOT REMOVAL FROM [facility] Alcohol Use: None Drug Use: None Adult General Chief Complaint Chief Complaint: EARACHE/EAR PAIN [facility] HPI Patient is a 38 year old female who presents to the ER with complaints of left ear pain for the last 5 days. She rates her pain a 9/10 on the pain scale, she denies any alleviating or aggravating factors. Pt denies any bleeding, drainage, or injury to the ear. Review of Systems Review of Systems Constitutional: Denies fever or chills [] Eyes: Denies change in visual acuity, redness, or eye pain; see HPI [] HENT: Denies nasal congestion or sore throat [] Respiratory: Denies cough or shortness of breath [] Cardiovascular: No additional information not addressed in HPI [] GI: Denies abdominal pain, nausea, vomiting, or diarrhea [] Musculoskeletal: Denies back pain or joint pain [] Integument: Denies rash or skin lesions [] Neurologic: Denies headache Complete systems were reviewed and found to be within normal limits, except as documented in this note. Allergies Allergies Allergies Coded Allergies Type Severity Reaction Last Updated Verified naproxen Allergy Intermediate Sweat 02/07/18 Yes propoxyphene napsylate Allergy Intermediate Chest problem 12/16/17 Yes tramadol Allergy Intermediate Chest problem 12/16/17 Yes Physical Exam Physical Exam Constitutional: Well developed, well nourished, no acute distress, non-toxic appearance. [] HENT: Normocephalic, atraumatic, bilateral external ears normal, bilateral TMs infected without perforation or drainage, posterior pharynx normal, oropharynx moist, no oral exudates, nose normal. [] Eyes: PERRLA, EOMI, conjunctiva normal, no discharge. [] Neck: Normal range of motion, no tenderness, supple, no stridor. [] Cardiovascular:Heart rate regular rhythm, no murmur [] Lungs & Thorax: Bilateral breath sounds clear to auscultation [] Skin: Warm, dry, no erythema, no rash. [] Back: No tenderness Extremities: No cyanosis, ROM intact, no edema. [] Neurologic: Alert and oriented X 3, no focal deficits noted. [] Psychologic: Affect normal, judgement normal, mood normal. [] Current Patient Data Vital Signs Vital Signs Date Time Temp Pulse Resp B/P (MAP) Pulse Ox O2 Delivery O2 Flow Rate FiO2 02/06/19 11:40 98.3 91 14 199/107 (137) 98 Room Air 98.3 EKG EKG [] Radiology/Procedures Radiology/Procedures [] Course & Med Decision Making Course & Med Decision Making Pertinent Labs and Imaging studies reviewed. (See chart for details) [] Dragon Disclaimer Dragon Disclaimer This electronic medical record was generated, in whole or in part, using a voice recognition dictation system. Departure Departure Impression: Primary Impression: Otitis media of both ears Disposition: HOME, SELF-CARE Condition: STABLE Referrals: UNKNOWN PCP NAME (PCP) Patient Instructions: Otitis Media, Adult, [id number] Additional Instructions: Fill prescription and use as directed. Take you pain medication as needed for pain. Follow up with your doctor in 1-2 days for reevaluation. Return to the ER if symptoms worsen. Scripts Ciprofloxacin Hcl/Dexameth (CIPRODEX OTIC SUSPENSION) 7.5 Ml Drops.susp 4 DROP EACH EAR BID for 5 Days, #7.5 ML 0 Refills Prov: AR STEVEN APRN 02/06/19 Amoxicillin (AMOXICILLIN) 875 Mg Tablet 1 TAB PO BID, #14 TAB 0 Refills Prov: AR STEVEN APRN 02/06/19 Problem Qualifiers Primary Impression: Otitis media of both ears Otitis media type: suppurative Chronicity: acute Recurrence: non- recurrent Spontaneous tympanic membrane rupture: without spontaneous rupture Qualified Codes: H66.003 - Acute suppurative otitis media without spontaneous rupture of ear drum, bilateral AR STEVEN CASKET TRIMMER Feb 06, 2019 12:34
[2019-02-06] MEDS ORDERED: CIPR7.5D EACH EAR (12:46)
== END 2019-02-06 12:50 | disposition home or self-care (01) ==
LOC: ER 11:16
DX: H66.003 Acute suppurative otitis media without spontaneous rupture of ear drum, bilateral (principal); I11.0 Hypertensive heart disease with heart failure; I50.9 Heart failure, unspecified; G43.909 Migraine, unspecified, not intractable, without status migrainosus; Z87.442 Personal history of urinary calculi; Z90.49 Acquired absence of other specified parts of digestive tract; Z98.51 Tubal ligation status; Z98.890 Other specified postprocedural states; Z88.5 Allergy status to narcotic agent; Z88.8 Allergy status to other drugs, medicaments and biological substances
CPT/HCPCS: 99283

== ENCOUNTER 2019-03-01 14:50 | Emergency (ER) | payer MEDICAID, MEDICARE ==
[~2019-03-01] VITALS: Ht 175.3 cm; Wt 145.1 kg
[~2019-03-01 14:50] MED LIST changes: +CIPR7.5D EACH EAR
[2019-03-01] MEDS ORDERED: fentaNYL PF VIAL 100 MCG/2 ML VIAL IV PRN (15:00)
[2019-03-01] MEDS ORDERED: ONDANSETRON PF 4 MG/2 ML VIAL. IV ONE ×2 (15:00→16:45)
--- NOTE | 2019-03-01 15:01 | PHYS DOC ---
Past Medical History Past Medical History: CHF, Hypertension, Kidney Stone, Migraines, UTI, Other Additional Past Medical Histor: ENLARGED HEART, OVARIAN CYST,L5 herniated disc, dental abscesses, ear prob Past Surgical History: Cholecystectomy, , Tubal ligation, Other Additional Past Surgical Histo: Laproscopy,D&C, herniated disc, CLOT REMOVAL FROM OVARY Alcohol Use: None Drug Use: None Adult General Chief Complaint Chief Complaint: abdominal pain HPI HPI Patient is a 39-year-old female who presents with complaint of right-sided abdominal pain as well as lower back pain that started a couple of days ago but patient states that pain is much worse today. She rates pain to be a 10 out of 10 and states that she's had some nausea and vomiting. She denies any chest pain or shortness of breath. She also denies any fever. She does indicate that she has a history of kidney stones and thinks that that may be what it is.[] Review of Systems Review of Systems Constitutional: Denies fever or chills [] Respiratory: Denies cough or shortness of breath [] Cardiovascular: No additional information not addressed in HPI [] GI: Complains of abdominal pain with nausea and vomiting. Denies diarrhea [] : Denies dysuria or hematuria [] Musculoskeletal: Complains of lower back pain [] Integument: Denies rash or skin lesions [] Neurologic: Denies headache, focal weakness or sensory changes [] All other systems were reviewed and found to be within normal limits, except as documented in this note. Current Medications Current Medications Current Medications Medications (Trade) Dose Ordered Sig/Ravinder Start Time Stop Time Status Last Admin Dose Admin Fentanyl Citrate (Fentanyl 2ml Vial) 50 mcg PRN Q15MIN PRN 03/01/19 15:00 03/02/19 14:59 03/01/19 15:22 50 MCG Hydromorphone HCl (Dilaudid) 1 mg 1X ONCE 03/01/19 17:00 03/01/19 17:01 DC 03/01/19 16:46 1 MG Ondansetron HCl (Zofran) 4 mg 1X ONCE 03/01/19 16:45 03/01/19 16:46 DC 03/01/19 16:45 4 MG Allergies Allergies Allergies Coded Allergies Type Severity Reaction Last Updated Verified naproxen Allergy Intermediate Sweat 02/07/18 Yes propoxyphene napsylate Allergy Intermediate Chest problem 12/16/17 Yes tramadol Allergy Intermediate Chest problem 12/16/17 Yes Physical Exam Physical Exam Constitutional: Well developed, well nourished, no acute distress, non-toxic appearance. [] HENT: Normocephalic, atraumatic, bilateral external ears normal, oropharynx moist, no oral exudates, nose normal. [] Eyes: PERRLA, EOMI, conjunctiva normal, no discharge. [] Neck: Normal range of motion, no tenderness, supple. [] Cardiovascular: Regular rate and rhythm[] Lungs & Thorax: Bilateral breath sounds clear to auscultation [] Abdomen: Bowel sounds normal, soft, with moderate tenderness to palpation in the right mid to lower abdomen. [] Skin: Warm, dry, no erythema, no rash. [] Extremities: No tenderness, no cyanosis, no clubbing, ROM intact, no edema. [] Neurologic: Alert and oriented X 3, no focal deficits noted. [] Current Patient Data Vital Signs Vital Signs Date Time Temp Pulse Resp B/P (MAP) Pulse Ox O2 Delivery O2 Flow Rate FiO2 03/01/19 16:46 Room Air 03/01/19 15:08 98.3 96 14 187/107 (133) 99 98.3 Lab Values Laboratory Tests Test 03/01/19 15:00 03/01/19 15:40 Urine Collection Type Void Urine Color Yellow Urine Clarity Cloudy Urine pH 5.5 Urine Specific [place] 1.025 Urine Protein >=300 mg/dL (NEG-TRACE) Urine Glucose (UA) Negative mg/dL (NEG) Urine Ketones (Stick) Negative mg/dL (NEG) Urine Blood Large (NEG) Urine Nitrite Negative (NEG) Urine Bilirubin Negative (NEG) Urine Urobilinogen Dipstick 0.2 mg/dL (0.2 mg/dL) Urine Leukocyte Esterase Negative (NEG) Urine RBC 6-10 /HPF (0-2) Urine WBC Occ /HPF (0-4) Urine Squamous Epithelial Cells Many /LPF Urine Bacteria Few /HPF (0-FEW) White Blood Count 8.1 x10^3/uL (4.0-11.0) Red Blood Count 4.88 x10^6/uL (3.50-5.40) Hemoglobin 11.6 g/dL (12.0-15.5) L Hematocrit 36.6 % (36.0-47.0) Mean Corpuscular Volume 75 fL (79-100) L Mean Corpuscular Hemoglobin 24 pg (25-35) L Mean Corpuscular Hemoglobin Concent 32 g/dL (31-37) Red Cell Distribution Width 16.3 % (11.5-14.5) H Platelet Count 348 x10^3/uL (140-400) Neutrophils (%) (Auto) 71 % (31-73) Lymphocytes (%) (Auto) 22 % (24-48) L Monocytes (%) (Auto) 6 % (0-9) Eosinophils (%) (Auto) 0 % (0-3) Basophils (%) (Auto) 1 % (0-3) Neutrophils # (Auto) 5.7 x10^3/uL (1.8-7.7) Lymphocytes # (Auto) 1.8 x10^3/uL (1.0-4.8) Monocytes # (Auto) 0.5 x10^3/uL (0.0-1.1) Eosinophils # (Auto) 0.0 x10^3/uL (0.0-0.7) Basophils # (Auto) 0.0 x10^3/uL (0.0-0.2) Sodium Level 142 mmol/L (136-145) Potassium Level 4.0 mmol/L (3.5-5.1) Chloride Level 107 mmol/L (98-107) Carbon Dioxide Level 24 mmol/L (21-32) Anion Gap 11 (6-14) Blood Urea Nitrogen 12 mg/dL (7-20) Creatinine 0.8 mg/dL (0.6-1.0) Estimated GFR (Cockcroft-Gault) 96.1 BUN/Creatinine Ratio 15 (6-20) Glucose Level 104 mg/dL (70-99) H Calcium Level 9.3 mg/dL (8.5-10.1) Total Bilirubin 0.3 mg/dL (0.2-1.0) Aspartate Amino Transferase (AST) 14 U/L (15-37) L Alanine Aminotransferase (ALT) 14 U/L (14-59) Alkaline Phosphatase 86 U/L (46-116) Total Protein 8.6 g/dL (6.4-8.2) H Albumin 3.6 g/dL (3.4-5.0) Albumin/Globulin Ratio 0.7 (1.0-1.7) L Lipase 46 U/L (73-393) L Laboratory Tests 03/01/19 15:40 Laboratory Tests 03/01/19 15:40 EKG EKG [] Radiology/Procedures Radiology/Procedures [] Impressions: PROCEDURE: CT ABDOMEN PELVIS WO CONTRAST Exam: CT abdomen and pelvis without contrast INDICATION: Right flank pain TECHNIQUE: Sequential axial images through the abdomen and pelvis obtained without IV contrast. Sagittal and coronal reformatted images were reconstructed from the axial data and reviewed. Comparisons: 12/16/2017 FINDINGS: Heart size is normal. No pericardial effusion. Visualized lung bases are clear. No pleural effusion. Evaluation of solid organs is limited secondary to noncontrast technique. Liver, spleen, pancreas and adrenals are unremarkable. There is moderate right-sided hydronephrosis. 5 mm calculus at the right ureterovesical junction. Several nonobstructing 2 to 3 mm renal calculi noted at the lower pole of the left kidney. Bladder is decompressed not well evaluated. Uterus is not enlarged. No abnormal adnexal mass. Large and small bowel are unremarkable. Appendix is not identified. No free intra-abdominal air or fluid. No obstruction. Abdominal aorta has a normal course and caliber. No enlarged abdominal lymph nodes are identified. No suspicious osseous lesions or acute fractures. IMPRESSION: 1. A 5 mm calculus at the right ureteral vesicle junction with moderate right-sided hydronephrosis. 2. Several nonobstructing renal calculi noted in the lower pole of the left kidney. Exposure: One or more of the following in the visualized dose reduction techniques were utilized for this examination: 1. Automated exposure control 2. Adjustment of the MA and/or KV according to patient size 3. Use of iterative of reconstructive technique Electronically signed by: Paul Chen MD (03/01/2019 5:13 PM) [facility] DICTATED and SIGNED BY: PAUL CHEN MD DATE: 03/01/19 1713 Course & Med Decision Making Course & Med Decision Making Pertinent Labs and Imaging studies reviewed. (See chart for details) [] Dragon Disclaimer Dragon Disclaimer This electronic medical record was generated, in whole or in part, using a voice recognition dictation system. Departure Departure Impression: Primary Impression: Ureterolithiasis Disposition: 01 HOME, SELF-CARE Condition: STABLE Referrals: UNKNOWN PCP NAME (PCP) Patient Instructions: Kidney Stones Additional Instructions: Understanding that you have a pain management contract, I still feel that you w ill need a stronger medication to manage her pain given that she had kidney stones. I have prescribed Percocet for your pain along with Flomax, Zofran and Toradol. I would like for you to notify your journeyman painter in the morning regarding your prescription for pain medication. Also follow-up with your primary care provider/urologist in the next few days. Return to the emergency room if you have acute worsening of symptoms that are not managed with prescribed medications. Scripts Ketorolac Tromethamine (KETOROLAC TROMETHAMINE) 10 Mg Tablet 1 TAB PO PRN Q6HRS PRN for PAIN, #20 TAB Prov: RIA COTE Jr. DO 03/01/19 Tamsulosin Hcl (FLOMAX) 0.4 Mg Cap.er.24h 1 CAP PO DAILY for kidney stones, #10 CAP Prov: RIA COTE Jr. DO 03/01/19 Ondansetron Hcl (ZOFRAN) 4 Mg Tablet 4 MG PO PRN TID PRN for NAUSEA, #15 TAB nausea/vomiting Prov: RIA COTE Jr. DO 03/01/19 Oxycodone/Apap 10-325 (PERCOCET 10-325 MG TABLET ) 1 Each Tablet 1 TAB PO PRN Q6HRS PRN for PAIN, #15 TAB 0 Refills Prov: RIA COTE Jr. DO 03/01/19 RIA COTE Jr. DO Mar 01, 2019 15:01
[2019-03-01 15:11] LABS: BILIRUBIN,URINE NEGATIVE (NEG); CLARITY,URINE CLOUDY; COLOR,URINE YELLOW; NITRITE,URINE NEGATIVE (NEG); PH,URINE 5.5; PROTEIN,URINE >=300 mg/dL (NEG-TRACE); UROBILINOGEN,URINE 0.2 mg/dL (0.2 mg/dL)
[2019-03-01 15:24] LABS: BACTERIA,URINE FEW /HPF (0-FEW); SQUAMOUS EPITHELIAL CELL,UR MANY /LPF; WBC,URINE OCC /HPF (0-4)
[2019-03-01 15:50] LABS: BASO % 1 % (0-3); EOS % 0 % (0-3); HEMATOCRIT 36.6 % (36.0-47.0); HEMOGLOBIN 11.6 g/dL (12.0-15.5); LYMPH # 1.8 x10^3/uL (1.0-4.8); LYMPH % 22 % (24-48); MEAN CORPUSCULAR HEMOGLOBIN 24 pg (25-35); MEAN CORPUSCULAR HGB CONC 32 g/dL (31-37); MEAN CORPUSCULAR VOLUME 75 fL (79-100); MONO # 0.5 x10^3/uL (0.0-1.1); MONO % 6 % (0-9); NEUT # 5.7 x10^3/uL (1.8-7.7); NEUT % 71 % (31-73); PLATELET COUNT 348 x10^3/uL (140-400); RED BLOOD COUNT 4.88 x10^6/uL (3.50-5.40); RED CELL DISTRIBUTION WIDTH 16.3 % (11.5-14.5); WHITE BLOOD COUNT 8.1 x10^3/uL (4.0-11.0)
[2019-03-01 15:58] LABS: CALCIUM 9.3 mg/dL (8.5-10.1); CREATININE 0.8 mg/dL (0.6-1.0); GFR 96.1
[2019-03-01 16:03] LABS: ALBUMIN 3.6 g/dL (3.4-5.0); ALBUMIN/GLOBULIN RATIO 0.7 (1.0-1.7); TOTAL BILIRUBIN 0.3 mg/dL (0.2-1.0); TOTAL PROTEIN 8.6 g/dL (6.4-8.2)
[2019-03-01] MEDS ORDERED: HYDROmorphone 2 MG/ML VIAL IV ONE (17:00)
--- NOTE | 2019-03-01 17:16 | RAD ---
Exam: CT abdomen and pelvis without contrast INDICATION: Right flank pain TECHNIQUE: Sequential axial images through the abdomen and pelvis obtained without IV contrast. Sagittal and coronal reformatted images were reconstructed from the axial data and reviewed. Comparisons: 12/16/2017 FINDINGS: Heart size is normal. No pericardial effusion. Visualized lung bases are clear. No pleural effusion. Evaluation of solid organs is limited secondary to noncontrast technique. Liver, spleen, pancreas and adrenals are unremarkable. There is moderate right-sided hydronephrosis. 5 mm calculus at the right ureterovesical junction. Several nonobstructing 2 to 3 mm renal calculi noted at the lower pole of the left kidney. Bladder is decompressed not well evaluated. Uterus is not enlarged. No abnormal adnexal mass. Large and small bowel are unremarkable. Appendix is not identified. No free intra-abdominal air or fluid. No obstruction. Abdominal aorta has a normal course and caliber. No enlarged abdominal lymph nodes are identified. No suspicious osseous lesions or acute fractures. IMPRESSION: 1. A 5 mm calculus at the right ureteral vesicle junction with moderate right-sided hydronephrosis. 2. Several nonobstructing renal calculi noted in the lower pole of the left kidney. Exposure: One or more of the following in the visualized dose reduction techniques were utilized for this examination: 1. Automated exposure control 2. Adjustment of the MA and/or KV according to patient size 3. Use of iterative of reconstructive technique Electronically signed by: Jennifer Shipley MD (03/01/2019 5:13 PM) [facility]
[2019-03-01] MEDS ORDERED: KETOROLAC 30 MG/ML VIAL. IVP ONE (17:30)
[2019-03-01] MEDS ORDERED: KETO10TA PO (17:30)
[2019-03-01] MEDS ORDERED: TAMS0.4C97 PO (17:30)
[2019-03-01] MEDS ORDERED: TAMSULOSIN 0.4 MG CAP.ER.24H. PO ONE (17:30)
[2019-03-01] MEDS ORDERED: ONDA4TAB7 PO (17:30)
[2019-03-01] MEDS ORDERED: OXYC1TAB22 PO (17:30)
[2019-03-01 18:20] VITALS: BP 175/88
== END 2019-03-01 18:26 | disposition home or self-care (01) ==
LOC: ER 14:50
DX: N13.2 Hydronephrosis with renal and ureteral calculous obstruction (principal); I11.0 Hypertensive heart disease with heart failure; I50.9 Heart failure, unspecified; G43.909 Migraine, unspecified, not intractable, without status migrainosus; Z98.51 Tubal ligation status; Z90.49 Acquired absence of other specified parts of digestive tract; Z88.5 Allergy status to narcotic agent; Z88.6 Allergy status to analgesic agent; Z88.8 Allergy status to other drugs, medicaments and biological substances
CPT/HCPCS: 36415; 74176; 80053; 81001; 83690; 85025; 96374; 96375; 96376; 99285; J1170; J1885; J2405; J3010

== ENCOUNTER 2019-07-09 11:33 | Emergency (ER) | payer MEDICARE, MEDICAID ==
[~2019-07-09] VITALS: Ht 175.3 cm; Wt 164.0 kg
[~2019-07-09 11:33] MED LIST changes: +KETO10TA PO; +ONDA4TAB7 PO; +OXYC1TAB22 PO; +TAMS0.4C97 PO
[2019-07-09 11:45] VITALS: BP 149/75
[2019-07-09] MEDS ORDERED: CIPR7.5D EACH EAR (12:41)
--- NOTE | 2019-07-09 12:42 | PHYS DOC ---
Past Medical History Past Medical History: CHF, Hypertension, Kidney Stone, Migraines, UTI, Other Additional Past Medical Histor: ENLARGED HEART, OVARIAN CYST,L5 herniated disc, dental abscesses, ear prob Past Surgical History: Cholecystectomy, , Tubal ligation, Other Additional Past Surgical Histo: Laproscopy,D&C, herniated disc, CLOT REMOVAL FROM OVARY Smoking Status: Never Smoker Alcohol Use: None Drug Use: None Adult General Chief Complaint Chief Complaint: EARACHE/EAR PAIN HPI HPI Patient is a 39 year old Female who presents with left ear pain for the last 4 days. She states in the past they've given her Ciprodex and is helped when she is having infection. States that her hearing has been muffled. She denies fevers, nausea, vomiting, body aches, nasal congestion, cough, headache, dizziness, shortness of breath, chest pain, numbness or tingling, visual changes. Review of Systems Review of Systems HENT: Denies nasal congestion or sore throat. Left ear pain [] All other systems were reviewed and found to be within normal limits, except as documented in this note. Allergies Allergies Allergies Coded Allergies Type Severity Reaction Last Updated Verified naproxen Allergy Intermediate Sweat 02/07/18 Yes propoxyphene napsylate Allergy Intermediate Chest problem 12/16/17 Yes tramadol Allergy Intermediate Chest problem 12/16/17 Yes Physical Exam Physical Exam Constitutional: Well developed, well nourished, no acute distress, non-toxic appearance. [] HENT: Normocephalic, atraumatic, bilateral external ears normal, oropharynx moist, no oral exudates, nose normal. Left ear otitis externa.[] Eyes: PERRLA, EOMI, conjunctiva normal, no discharge. [] Neck: Normal range of motion, no tenderness, supple, no stridor. [] Cardiovascular:Heart rate regular rhythm, no murmur [] Lungs & Thorax: Bilateral breath sounds clear to auscultation [] Abdomen: Bowel sounds normal, soft, no tenderness, no masses, no pulsatile masses. [] Skin: Warm, dry, no erythema, no rash. [] Back: No tenderness, no CVA tenderness. [] Extremities: No tenderness, no cyanosis, no clubbing, ROM intact, no edema. [] Neurologic: Alert and oriented X 3, normal motor function, normal sensory function, no focal deficits noted. [] Psychologic: Affect normal, judgement normal, mood normal. [] Current Patient Data Vital Signs Vital Signs Date Time Temp Pulse Resp B/P (MAP) Pulse Ox O2 Delivery O2 Flow Rate FiO2 07/09/19 11:45 98.0 91 17 149/75 (99) 95 Room Air 98.0 EKG EKG [] Radiology/Procedures Radiology/Procedures [] Course & Med Decision Making Course & Med Decision Making Pertinent Labs and Imaging studies reviewed. (See chart for details) She rates her pain a 7 out of 10. Left here is reddened and the canal is swollen tender with examination. Lungs are clear to auscultation all lobes. Speaks in full clear sentences. Skin pink warm and dry. Vital Signs are normal limits. [] Dragon Disclaimer Dragon Disclaimer This electronic medical record was generated, in whole or in part, using a voice recognition dictation system. Departure Departure Impression: Primary Impression: Otitis externa Disposition: HOME, SELF-CARE Condition: STABLE Referrals: UNKNOWN PCP NAME (PCP) Patient Instructions: Otitis Externa, [id number] Additional Instructions: Follow-up with primary care provider. Use medication as prescribed. Take Tylenol to help with pain. Scripts Ciprofloxacin Hcl/Dexameth (CIPRODEX OTIC SUSPENSION) 7.5 Ml Drops.susp 4 DROP EACH EAR BID, #1 BOTTLE Prov: RODRIGUEZ TAYLOR APRN 07/09/19 Problem Qualifiers Primary Impression: Otitis externa Otitis externa type: unspecified type Chronicity: acute Laterality: left Qualified Codes: H60.502 - Unspecified acute noninfective otitis externa, left ear RODRIUGEZ TAYLOR VICE PRESIDENT OF NURSING Jul 09, 2019 12:42
== END 2019-07-09 12:50 | disposition home or self-care (01) ==
LOC: ER 11:33
DX: H60.502 Unspecified acute noninfective otitis externa, left ear (principal); I11.0 Hypertensive heart disease with heart failure; I50.9 Heart failure, unspecified; G43.909 Migraine, unspecified, not intractable, without status migrainosus; Z88.5 Allergy status to narcotic agent; Z88.6 Allergy status to analgesic agent; Z88.8 Allergy status to other drugs, medicaments and biological substances
CPT/HCPCS: 99283

== ENCOUNTER 2019-08-07 14:50 | Emergency (ER) | payer MEDICARE, MEDICAID ==
[~2019-08-07] VITALS: Ht 175.3 cm; Wt 136.0 kg
[2019-08-07 15:30] VITALS: BP 131/85
[2019-08-07] MEDS ORDERED: CIPR7.5D AS (16:00)
--- NOTE | 2019-08-07 16:00 | PHYS DOC ---
Past Medical History Past Medical History: CHF, Hypertension, Kidney Stone, Migraines, UTI, Other Additional Past Medical Histor: ENLARGED HEART, OVARIAN CYST,L5 herniated disc, dental abscesses, ear prob Past Surgical History: Cholecystectomy, , Tubal ligation, Other Additional Past Surgical Histo: Laproscopy,D&C, herniated disc, CLOT REMOVAL FROM OVARY Smoking Status: Never Smoker Alcohol Use: None Drug Use: None Adult General Chief Complaint Chief Complaint: EARACHE/EAR PAIN HPI HPI Patient is a 39 year old female with history of hypertension CHF, migraine headaches, who presents to the ED today complaining of 10 out of 10 left ear pain with drainage, patient reports this is chronic but has gotten worse in the last 1 week. She states she was supposed to have tubes placed in her left ear on August 01, 2019 but the surgery was canceled because of coronavirus. She is requesting a prescription for Ciprodex. She states this is what typically clears the infection. Review of Systems Review of Systems Constitutional: Denies fever or chills [] Eyes: Denies change in visual acuity, redness, or eye pain [] HENT: Reports left ear pain with drainage. Denies nasal congestion or sore throat [] Respiratory: Denies cough or shortness of breath [] Cardiovascular: No additional information not addressed in HPI [] GI: Denies abdominal pain, nausea, vomiting, bloody stools or diarrhea [] : Denies dysuria or hematuria [] Musculoskeletal: Denies back pain or joint pain [] Integument: Denies rash or skin lesions [] Neurologic: Denies headache, focal weakness or sensory changes [] All other systems were reviewed and found to be within normal limits, except as documented in this note. Allergies Allergies Allergies Coded Allergies Type Severity Reaction Last Updated Verified naproxen Allergy Intermediate Sweat 02/07/18 Yes propoxyphene napsylate Allergy Intermediate Chest problem 12/16/17 Yes tramadol Allergy Intermediate Chest problem 12/16/17 Yes Physical Exam Physical Exam Constitutional: Well developed, well nourished, no acute distress, non-toxic appearance. [] HENT: Normocephalic, atraumatic, bilateral external ears normal, oropharynx moist, no oral exudates, nose normal. [] Eyes: PERRLA, EOMI, conjunctiva normal, no discharge. [] Neck: Normal range of motion, no tenderness, supple, no stridor. [] Cardiovascular:Heart rate regular rhythm, no murmur [] Lungs & Thorax: Bilateral breath sounds clear to auscultation [] Abdomen: Bowel sounds normal, soft, no tenderness, no masses, no pulsatile masses. [] Skin: Warm, dry, no erythema, no rash. [] Back: No tenderness, no CVA tenderness. [] Extremities: No tenderness, no cyanosis, no clubbing, ROM intact, no edema. [] Neurologic: Alert and oriented X 3, normal motor function, normal sensory function, no focal deficits noted. [] Psychologic: Affect normal, judgement normal, mood normal. [] Current Patient Data Vital Signs Vital Signs Date Time Temp Pulse Resp B/P (MAP) Pulse Ox O2 Delivery O2 Flow Rate FiO2 08/07/19 15:30 98.0 76 18 131/85 (100) 98 Room Air 98.0 EKG EKG [] Radiology/Procedures Radiology/Procedures [] Course & Med Decision Making Course & Med Decision Making Pertinent Labs and Imaging studies reviewed. (See chart for details) This is a 39-year-old female patient presenting to the ED today with left ear pain with drainage and requesting Ciprodex, she reports she was supposed to have surgery with tube placement to the left ear but was canceled on July 31 due to [place]. Rx for Ciprodex given. Discharge to home Dragon Disclaimer Adrianna Disclaimer This electronic medical record was generated, in whole or in part, using a voice recognition dictation system. Departure Departure Impression: Primary Impression: Otalgia of left ear Disposition: HOME, SELF-CARE Condition: STABLE Referrals: UNKNOWN PCP NAME (PCP) follow up with your doctor in 1 week Patient Instructions: Otalgia-Brief Additional Instructions: Please use the ear drops as ordered. Follow up with your doctor in 1 week Scripts Ciprofloxacin Hcl/Dexameth (CIPRODEX OTIC SUSPENSION) 7.5 Ml Drops.susp 4 DROP EACH EAR BID, #7.5 ML Prov: MUTUNGA,GINNY VICE [employer]IDENT [employer] 08/07/19 Ciprofloxacin Hcl/Dexameth (CIPRODEX OTIC SUSPENSION) 7.5 Ml Drops.susp 4 DROP BID, #7.5 ML use for 7 days Prov: MUTUNGA,GINNY [employer]ICE [employer] 08/07/19 MUTUNGA,GINNY VICE PRESIDENT [employer] Aug 07, 2019:00
[2019-08-07] MEDS ORDERED: CIPR7.5D EACH EAR (16:39)
== END 2019-08-07 16:42 | disposition home or self-care (01) ==
LOC: ER 14:50
DX: H92.02 Otalgia, left ear (principal); G89.29 Other chronic pain; I11.0 Hypertensive heart disease with heart failure; I50.9 Heart failure, unspecified; G43.909 Migraine, unspecified, not intractable, without status migrainosus; Z88.5 Allergy status to narcotic agent; Z88.6 Allergy status to analgesic agent; Z88.8 Allergy status to other drugs, medicaments and biological substances
CPT/HCPCS: 99283

== ENCOUNTER 2019-10-29 14:47 | Emergency (ER) | payer MEDICARE, MEDICAID ==
[~2019-10-29] VITALS: Ht 175.3 cm; Wt 156.0 kg
[~2019-10-29 14:47] MED LIST changes: +CIPR7.5D AS
[2019-10-29 15:00] VITALS: BP 139/82
[2019-10-29] MEDS ORDERED: CIPR7.5D LEFT EAR ×2 (16:20→17:01)
[2019-10-29] MEDS ORDERED: AMOX875T PO ×2 (16:20→17:01)
--- NOTE | 2019-10-29 16:21 | PHYS DOC ---
Past Medical History Past Medical History: CHF, Hypertension, Kidney Stone, Migraines, UTI, Other Additional Past Medical Histor: ENLARGED HEART, OVARIAN CYST,L5 herniated disc, dental abscesses, ear prob (AR STEVEN APRN) Past Surgical History: Cholecystectomy, , Tubal ligation, Other Additional Past Surgical Histo: Laproscopy,D&C, herniated disc, CLOT REMOVAL FROM OVARY (AR STEVEN APRN) Smoking Status: Never Smoker Alcohol Use: None Drug Use: None (AR STEVEN APRN) General Adult EDM: Chief Complaint: EARACHE/EAR PAIN HPI: HPI: Patient is a 39 year old AA female who presents to the emergency department with complaints of left ear pain for the last week. Patient states that she frequently gets otitis externa. She denies any fever, cough, shortness of breath, sore throat, nausea, vomiting, diarrhea, abdominal pain, chest pain, or body aches. She denies any dizziness, rash, drainage or bleeding from the ear, or decreased hearing. She currently rates pain a 10 out of 10 on the pain scale, there are no alleviating or exacerbating factors and the pain does not radiate. (AR STEVEN APRN) Review of Systems: Review of Systems: Complete review of systems is negative unless otherwise documented in the HPI (AR STEVEN APRN) Heart Score: Risk Factors: Risk Factors: DM, Current or recent (<one month) smoker, HTN, HLP, family history of CAD, obesity. Risk Scores: Score 0 - 3: 2.5% MACE over next 6 weeks - Discharge Home Score 4 - 6: 20.3% MACE over next 6 weeks - Admit for Clinical Observation Score 7 - 10: 72.7% MACE over next 6 weeks - Early Invasive Strategies (AR STEVEN APRN) Allergies: Allergies: Allergies Coded Allergies Type Severity Reaction Last Updated Verified naproxen Allergy Intermediate Sweat 02/07/18 Yes propoxyphene napsylate Allergy Intermediate Chest problem 12/16/17 Yes tramadol Allergy Intermediate Chest problem 12/16/17 Yes (AR STEVEN APRN) Physical Exam: PE: Constitutional: Well developed, well nourished, no acute distress, obese HENT: Normocephalic, atraumatic, posterior pharynx normal, oropharynx moist, no oral exudates, nose normal; right TM normal, left TM infected with notable edema and erythema to the external canal also, no visible perforation or drainage; no erythema, edema, or tenderness of the left mastoid Eyes: PERRLA, EOMI, conjunctiva normal, no discharge. [] Neck: Normal range of motion, no stridor. [] Cardiovascular:Heart rate regular rhythm Lungs & Thorax: Respirations even and unlabored, no retractions, no respiratory distress [] Skin: Warm, dry, no erythema, no rash. [] Extremities: No cyanosis, ROM intact Neurologic: Alert and oriented X 3, no focal deficits noted. [] Psychologic: Affect normal, judgement normal, mood normal. [] (AR STEVEN APRN) Current Patient Data: Vital Signs: Vital Signs Date Time Temp Pulse Resp B/P (MAP) Pulse Ox O2 Delivery O2 Flow Rate FiO2 10/29/19 15:00 98.0 83 16 139/82 (101) 99 Room Air 98.0 (AR STEVEN APRN) EKG: EKG: [] (AR STEVEN APRN) Radiology/Procedures: Radiology/Procedures: [] (AR STEVEN APRN) Course & Med Decision Making: Course & Med Decision Making Pertinent Labs and Imaging studies reviewed. (See chart for details) [] (AR STEVEN APRN) Dragon Disclaimer: Dragon Disclaimer: This electronic medical record was generated, in whole or in part, using a voice recognition dictation system. (AR STEVEN APRN) Departure Departure Impression: Primary Impression: Left otitis media Qualified Codes: H66.005 - Acute suppurative otitis media without spontaneous rupture of ear drum, recurrent, left ear Additional Impressions: Otalgia, left ear Left otitis externa Qualified Codes: H60.92 - Unspecified otitis externa, left ear Disposition: 01 HOME, SELF-CARE Condition: STABLE Referrals: UNKNOWN PCP NAME (PCP) Patient Instructions: Otitis Externa, [id number], Otitis Media, Adult Additional Instructions: Fill the prescription(s) and use as directed. Alternate Tylenol and ibuprofen as needed for fever. Follow-up with your doctor in one to 2 days to have the ears rechecked, return to the ER if symptoms worsen Scripts Ciprofloxacin Hcl/Dexameth (CIPRODEX OTIC SUSPENSION) 7.5 Ml Drops.susp 4 DROP LEFT EAR BID for 7 Days, #7.5 ML 0 Refills Prov: AR STEVEN APRN 10/29/19 Amoxicillin (AMOXICILLIN) 875 Mg Tablet 1 TAB PO BID for 10 Days, #20 TAB 0 Refills Prov: AR STEVEN APRN 10/29/19 Justicifation of Admission Dx: Justifications for Admission: Justification of Admission Dx: N/A (AR STEVEN APRN) Attending Signature Attending Signature I have participated in the care of this patient and I have reviewed and agree with all pertinent clinical information above including history, exam, and recommendations. (CATHY DENTON DO) Attending Signature I have participated in the care of this patient and I have reviewed and agree with all pertinent clinical information above including history, exam, and recommendations. (AR STEVEN APRN) AR STEVEN APRN Oct 29, 2019 16:21 CATHY DENTON DO Oct 29, 2019 16:50
== END 2019-10-29 16:48 | disposition home or self-care (01) ==
LOC: ER 14:47
DX: H66.005 Acute suppurative otitis media without spontaneous rupture of ear drum, recurrent, left ear (principal); H60.92 Unspecified otitis externa, left ear; I11.0 Hypertensive heart disease with heart failure; I50.9 Heart failure, unspecified; G43.909 Migraine, unspecified, not intractable, without status migrainosus; Z88.5 Allergy status to narcotic agent; Z88.6 Allergy status to analgesic agent
CPT/HCPCS: 99283

== ENCOUNTER 2020-03-04 10:53 | Emergency (ER) | payer MEDICARE, MEDICAID ==
[~2020-03-04] VITALS: Ht 175.3 cm; Wt 136.0 kg
[~2020-03-04 10:53] MED LIST changes: +CIPR7.5D LEFT EAR; -LISI1TAB19 PO; +LISI1TAB37 PO
[2020-03-04 11:19] VITALS: BP 164/113
[2020-03-04] MEDS ORDERED: HYDROcodone/APAP 5/325MG 1 TAB TABLET PO ONE (11:45)
[2020-03-04] MEDS ORDERED: CIPR7.5D EACH EAR (11:46)
--- NOTE | 2020-03-04 11:47 | PHYS DOC ---
Past Medical History Past Medical History: CHF, Hypertension, Kidney Stone, Migraines, UTI, Other Additional Past Medical Histor: ENLARGED HEART, OVARIAN CYST,L5 herniated disc, dental abscesses, ear prob Past Surgical History: Cholecystectomy, , Tubal ligation, Other Additional Past Surgical Histo: Laproscopy,D&C, herniated disc, CLOT REMOVAL FROM OVARY Smoking Status: Never Smoker Alcohol Use: None Drug Use: None General Adult EDM: Chief Complaint: EARACHE/EAR PAIN HPI: HPI: Patient is a 40 year old female with history of hypertension, CHF, who presents to the ED today complaining of 9 out of 10 left ear pain that began 4 days ago. Patient reports history of chronic otitis externa and follows up with an ENT at [facility], she states the ENT unfortunately moved to a different clinic and she has to establish care with a different doctor. She states she usually gets Ciprodex 7.5 mg to clear the infection then follows up with ENT. Denies any fever, coughing, congestion. Review of Systems: Review of Systems: Constitutional: Denies fever or chills. [] HENT: Reports left earpain/infection. Denies nasal congestion or sore throat. [] Respiratory: Denies cough or shortness of breath. [] Cardiovascular: Denies chest pain or edema. [] GI: Denies abdominal pain, nausea, vomiting, bloody stools or diarrhea. [] : Denies dysuria. [] Musculoskeletal: Denies back pain or joint pain. [] Integument: Denies rash. [] Neurologic: Denies headache, focal weakness or sensory changes. [] Psychiatric: Denies depression or anxiety. [] Heart Score: Risk Factors: Risk Factors: DM, Current or recent (<one month) smoker, HTN, HLP, family history of CAD, obesity. Risk Scores: Score 0 - 3: 2.5% MACE over next 6 weeks - Discharge Home Score 4 - 6: 20.3% MACE over next 6 weeks - Admit for Clinical Observation Score 7 - 10: 72.7% MACE over next 6 weeks - Early Invasive Strategies Current Medications: Current Medications Medications (Trade) Dose Ordered Sig/Ravinder Start Time Stop Time Status Last Admin Dose Admin Acetaminophen/ Hydrocodone Bitart (Lortab 5/325) 2 tab 1X ONCE 03/04/20 11:45 03/04/20 11:46 UNV Allergies: Allergies: Allergies Coded Allergies Type Severity Reaction Last Updated Verified naproxen Allergy Intermediate Sweat 02/07/18 Yes propoxyphene napsylate Allergy Intermediate Chest problem 12/16/17 Yes tramadol Allergy Intermediate Chest problem 12/16/17 Yes Physical Exam: PE: Constitutional: Well developed, well nourished, no acute distress, non-toxic appearance. [] HENT: Normocephalic, atraumatic, bilateral external ears normal, oropharynx moist, no oral exudates, nose normal. [] Left ear canal is slightly narrowed with trace amount of exudate and erythema. Eyes: PERRLA, EOMI, conjunctiva normal, no discharge. [] Neck: Normal range of motion, no tenderness, supple, no stridor. [] Cardiovascular:Heart rate regular rhythm, no murmur [] Lungs & Thorax: Bilateral breath sounds clear to auscultation [] Abdomen: Bowel sounds normal, soft, no tenderness, no masses, no pulsatile masses. [] Skin: Warm, dry, no erythema, no rash. [] Back: No tenderness, no CVA tenderness. [] Extremities: No tenderness, no cyanosis, no clubbing, ROM intact, no edema. [] Neurologic: Alert and oriented X 3, normal motor function, normal sensory function, no focal deficits noted. [] Psychologic: Affect normal, judgement normal, mood normal. [] Current Patient Data: Vital Signs: Vital Signs Date Time Temp Pulse Resp B/P (MAP) Pulse Ox O2 Delivery O2 Flow Rate FiO2 03/04/20 11:19 98.9 97 18 164/113 (130) 99 Room Air 98.9 EKG: EKG: [] Radiology/Procedures: Radiology/Procedures: [] Course & Med Decision Making: Course & Med Decision Making Pertinent Labs and Imaging studies reviewed. (See chart for details) This is a 40-year-old female patient with otitis externa, this is a chronic condition on this patient we have seen her multiple times for this. She usually gets Ciprodex 7.5 mg and follows up with the ENT unfortunately she states the ENT doctor she sees has moved to a different clinic. Prescription for Ciprodex was given, encourage her to look for another ENT doctor. Adrianna Disclaimer: Adrianna Disclaimer: This electronic medical record was generated, in whole or in part, using a voice recognition dictation system. Departure Departure Impression: Primary Impression: Left otitis externa Qualified Codes: H60.392 - Other infective otitis externa, left ear Disposition: DC HOME SELF CARE/HOMELESS Condition: STABLE Referrals: UNKNOWN PCP NAME (PCP) follow up with ENT KATELYN MANN MD follow up in 1-2 weeks Patient Instructions: Otitis Externa, [id number] Additional Instructions: You are seen for an ear infection. Use the prescribed medication as ordered and follow-up with an ENT specialist as soon as possible. Scripts Ciprofloxacin Hcl/Dexameth (CIPRODEX OTIC SUSPENSION) 7.5 Ml Drops.susp 4 DROP EACH EAR BID, #7.5 ML Prov: GINNY STERN APRN 03/04/20 GINNY STERN APRN Mar 04, 2020 11:47
== END 2020-03-04 12:04 | disposition home or self-care (01) ==
LOC: ER 10:53
DX: H60.392 Other infective otitis externa, left ear (principal); L53.9 Erythematous condition, unspecified; I11.0 Hypertensive heart disease with heart failure; I50.9 Heart failure, unspecified; G43.909 Migraine, unspecified, not intractable, without status migrainosus; Z87.442 Personal history of urinary calculi; Z90.49 Acquired absence of other specified parts of digestive tract; Z98.890 Other specified postprocedural states; Z98.51 Tubal ligation status; Z88.8 Allergy status to other drugs, medicaments and biological substances
CPT/HCPCS: 99283

== ENCOUNTER 2020-05-04 12:16 | Emergency (ER) | payer MEDICARE, MEDICAID ==
[~2020-05-04] VITALS: Ht 175.3 cm; Wt 136.3 kg
[2020-05-04] MEDS ORDERED: CIPR7.5D EACH EAR (13:24)
[2020-05-04] MEDS ORDERED: SULF1TAB23 PO (13:24)
[2020-05-04 13:25] VITALS: BP 189/97
--- NOTE | 2020-05-04 13:25 | PHYS DOC ---
Past Medical History Past Medical History: CHF, Hypertension, Kidney Stone, Migraines, UTI, Other Additional Past Medical Histor: ENLARGED HEART, OVARIAN CYST,L5 herniated disc, dental abscesses, ear prob Past Surgical History: Cholecystectomy, , Tubal ligation, Other Additional Past Surgical Histo: Laproscopy,D&C, herniated disc, CLOT REMOVAL FROM OVARY Smoking Status: Never Smoker Alcohol Use: None Drug Use: None General Adult EDM: Chief Complaint: MULTIPLE COMPLAINTS HPI: HPI: Patient is a 40 year old female with hx of HTN, CHF, migraines, who presents to the ED today with 2 complaints. Patient is complaining of right buttock ab scess, symptoms for 1 week. Denies any fever. Denies any drainage from the area. She is also complaining of chronic left ear infection. She states she usually follows up with ENT but has not been seen for for a while due to COVID- 19. She is requesting a prescription for Ciprodex which she states she uses chronically for otitis externa. Denies any fever. Review of Systems: Review of Systems: Constitutional: Denies fever or chills. [] Eyes: Denies change in visual acuity. [] HENT: Reports chronic left ear infection. Denies nasal congestion or sore throat. [] Respiratory: Denies cough or shortness of breath. [] Cardiovascular: Denies chest pain or edema. [] GI: Denies abdominal pain, nausea, vomiting, bloody stools or diarrhea. [] : Denies dysuria. [] Musculoskeletal: Denies back pain or joint pain. [] Integument: Reports right buttocks abscess Neurologic: Denies headache, focal weakness or sensory changes. [] ] Psychiatric: Denies depression or anxiety. [] Heart Score: Risk Factors: Risk Factors: DM, Current or recent (<one month) smoker, HTN, HLP, family history of CAD, obesity. Risk Scores: Score 0 - 3: 2.5% MACE over next 6 weeks - Discharge Home Score 4 - 6: 20.3% MACE over next 6 weeks - Admit for Clinical Observation Score 7 - 10: 72.7% MACE over next 6 weeks - Early Invasive Strategies Current Medications: Current Medications Medications (Trade) Dose Ordered Sig/Ravinder Start Time Stop Time Status Last Admin Dose Admin Acetaminophen/ Hydrocodone Bitart (Lortab 5/325) 2 tab 1X ONCE 05/04/20 13:30 05/04/20 13:31 Trimethoprim/ Sulfamethoxazole (Bactrim Ds) 1 tab 1X ONCE 05/04/20 13:45 05/04/20 13:46 Allergies: Allergies: Allergies Coded Allergies Type Severity Reaction Last Updated Verified naproxen Allergy Intermediate Sweat 02/07/18 Yes propoxyphene napsylate Allergy Intermediate Chest problem 12/16/17 Yes tramadol Allergy Intermediate Chest problem 12/16/17 Yes Physical Exam: PE: Constitutional: Well developed, well nourished, no acute distress, non-toxic appearance. [] HENT: Normocephalic, atraumatic, bilateral external ears normal, oropharynx moist, no oral exudates, nose normal. Left ear canal with no acute findings. Eyes: PERRLA, EOMI, conjunctiva normal, no discharge. [] Neck: Normal range of motion, no tenderness, supple, no stridor. [] Cardiovascular:Heart rate regular rhythm, no murmur [] Lungs & Thorax: Bilateral breath sounds clear to auscultation [] Abdomen: Bowel sounds normal, soft, no tenderness, no masses, no pulsatile masses. [] Skin: Right buttocks with an indurated area of redness approximately 2 x 0.5 cm with slight firmness but no fluctuance. This looks like a early cellulitis. Back: No tenderness, no CVA tenderness. [] Extremities: No tenderness, no cyanosis, no clubbing, ROM intact, no edema. [] Neurologic: Alert and oriented X 3, normal motor function, normal sensory function, no focal deficits noted. [] Psychologic: Affect normal, judgement normal, mood normal. [] Current Patient Data: Vital Signs: Vital Signs Date Time Temp Pulse Resp B/P (MAP) Pulse Ox O2 Delivery O2 Flow Rate FiO2 05/04/20 12:31 98.4 87 20 186/101 (129) 97 Room Air 98.4 EKG: EKG: [] Radiology/Procedures: Radiology/Procedures: [] Course & Med Decision Making: Course & Med Decision Making Pertinent Labs and Imaging studies reviewed. (See chart for details) This is a 40-year-old female patient presented to the ED today with cellulitis to the right buttock. Discharged on Bactrim. First dose given in the ED. Tetanus up-to-date. She is also requesting a refill of Ciprodex which she uses for chronic otitis externa. Discharged to home with Bactrim and Ciprodex. Follow-up with ENT as well as her PCP for the abscess. Warm compresses recommended to the cellulitis Adrianna Disclaimer: Adrianna Disclaimer: This electronic medical record was generated, in whole or in part, using a voice recognition dictation system. Departure Departure Impression: Primary Impression: Cellulitis of right buttock Additional Impression: Otalgia, left ear Disposition: DC HOME SELF CARE/HOMELESS Condition: STABLE Referrals: NO PCP (PCP) Follow-up with your primary care doctor as well as ENT Patient Instructions: Cellulitis, [id number], Otitis Externa, [id number] Additional Instructions: You have cellulitis of your right buttocks. Take the prescribed antibiotics unt il completed. Use the eardrops prescribed as ordered. Follow-up with your primary care doctor or ENT as soon as possible. Apply warm compresses to the area on the buttock Scripts Ciprofloxacin Hcl/Dexameth (CIPRODEX OTIC SUSPENSION) 7.5 Ml Drops.susp 4 DROP EACH EAR BID, #7.5 ML Prov: GINNY STERN APRN 05/04/20 Sulfamethoxazole/Trimethoprim (BACTRIM 400-80 MG TABLET) 1 Each Tablet 1 TAB PO BID for 10 Days, #20 TAB 0 Refills Prov: GINNY TSERN APRN 05/04/20 GINNY STERN APRN May 04, 2020 13:25
[2020-05-04] MEDS ORDERED: HYDROcodone/APAP 5/325MG 1 TAB TABLET PO ONE (13:30)
[2020-05-04] MEDS ORDERED: SMZ/TMP 800/160MG TABLET. PO ONE (13:45)
== END 2020-05-04 13:30 | disposition home or self-care (01) ==
LOC: ER 12:16
DX: L03.317 Cellulitis of buttock (principal); H92.02 Otalgia, left ear; G43.909 Migraine, unspecified, not intractable, without status migrainosus; I11.0 Hypertensive heart disease with heart failure; I50.9 Heart failure, unspecified; Z90.49 Acquired absence of other specified parts of digestive tract; Z98.890 Other specified postprocedural states; Z98.51 Tubal ligation status; Z88.8 Allergy status to other drugs, medicaments and biological substances
CPT/HCPCS: 99283

== ENCOUNTER 2020-07-22 11:53 | Emergency (ER) | payer MEDICARE, MEDICAID ==
[~2020-07-22] VITALS: Ht 175.3 cm; Wt 140.0 kg
[~2020-07-22 11:53] MED LIST changes: -LISI-334 PO; -LISI-338 PO; +LISI-517 PO; +LISI20TA18 PO; +SULF1TAB23 PO
[2020-07-22 12:20] VITALS: BP 137/85
[2020-07-22] MEDS ORDERED: CIPR7.5D LEFT EAR (12:35)
--- NOTE | 2020-07-22 12:35 | PHYS DOC ---
Past Medical History Past Medical History: CHF, Hypertension, Kidney Stone, Migraines, UTI, Other Additional Past Medical Histor: ENLARGED HEART, OVARIAN CYST,L5 herniated disc, dental abscesses, ear prob Past Surgical History: Cholecystectomy, , Tubal ligation, Other Additional Past Surgical Histo: Laproscopy,D&C, herniated disc, CLOT REMOVAL FROM OVARY Smoking Status: Never Smoker Alcohol Use: None Drug Use: None General Adult EDM: Chief Complaint: EARACHE/EAR PAIN HPI: HPI: Patient is a 40 year old female who presents with 1 week of left ear pain. She states that she had a appointment with her ears nose throat doctor at [facility] but her cousin's was yesterday and so she had to reschedule it. She denies fever, nasal congestion, headache, abdominal pain, nausea, vomiting, diarrhea, dizziness, vision changes, chest pain or shortness of air. She states that she does get frequent ear infections and is trying to get tubes placed in her ears. She states last time she was on any current antibiotics was a month and half ago. Patient is rating her left ear pain a throbbing 8 out of 10. She is asking for 1 pain pill why she is here. Patient has a history of frequent ear infections, dental abscess, UTI, cholecystectomy, , D&C, tubal liga tion, CHF, enlarged heart, ovarian cyst, L5 herniation, hypertension, kidney stone, migraine. Review of Systems: Review of Systems: Constitutional: Denies fever or chills. [] Eyes: Denies change in visual acuity. [] HENT: Denies nasal congestion or sore throat. + Left ear pain [] Respiratory: Denies cough or shortness of breath. [] Cardiovascular: Denies chest pain or edema. [] GI: Denies abdominal pain, nausea, vomiting, bloody stools or diarrhea. [] : Denies dysuria. [] Musculoskeletal: Denies back pain or joint pain. [] Integument: Denies rash. [] Neurologic: Denies headache, focal weakness or sensory changes. [] Endocrine: Denies polyuria or polydipsia. [] Lymphatic: Denies swollen glands. [] Psychiatric: Denies depression or anxiety. [] Heart Score: C/O Chest Pain: No Risk Factors: Risk Factors: DM, Current or recent (<one month) smoker, HTN, HLP, family history of CAD, obesity. Risk Scores: Score 0 - 3: 2.5% MACE over next 6 weeks - Discharge Home Score 4 - 6: 20.3% MACE over next 6 weeks - Admit for Clinical Observation Score 7 - 10: 72.7% MACE over next 6 weeks - Early Invasive Strategies Allergies: Allergies: Allergies Coded Allergies Type Severity Reaction Last Updated Verified naproxen Allergy Intermediate Sweat 02/07/18 Yes propoxyphene napsylate Allergy Intermediate Chest problem 12/16/17 Yes tramadol Allergy Intermediate Chest problem 12/16/17 Yes Physical Exam: PE: Constitutional: Well developed, well nourished, no acute distress, non-toxic appearance. [] HENT: Normocephalic, atraumatic, bilateral external ears normal, oropharynx moist, no oral exudates, nose normal. Left otitis externa with tenderness on exam. [] Eyes: PERRLA, EOMI, conjunctiva normal, no discharge. [] Neck: Normal range of motion, no tenderness, supple, no stridor. [] Cardiovascular:Heart rate regular rhythm, no murmur [] Lungs & Thorax: Bilateral breath sounds clear to auscultation [] Abdomen: Bowel sounds normal, soft, no tenderness, no masses, no pulsatile masses. [] Skin: Warm, dry, no erythema, no rash. [] Back: No tenderness, no CVA tenderness. [] Extremities: No tenderness, no cyanosis, no clubbing, ROM intact, no edema. [] Neurologic: Alert and oriented X 3, normal motor function, normal sensory function, no focal deficits noted. [] Psychologic: Affect normal, judgement normal, mood normal. [] EKG: EKG: [] Radiology/Procedures: Radiology/Procedures: [] Course & Med Decision Making: Course & Med Decision Making Pertinent Labs and Imaging studies reviewed. (See chart for details) See HPI. Alert and oriented x4. Ambulatory with steady gait. Speaks in full clear sentences. Skin pink warm and dry. Patient's left ear canal is very swollen and tender and reddened. There is no swelling that I cannot see the eardrum. Patient states that her insurance will pay for the Ciprodex. [] Adrianna Disclaimer: Adrianna Disclaimer: This electronic medical record was generated, in whole or in part, using a voice recognition dictation system. Departure Departure Impression: Primary Impression: Otitis external Qualified Codes: H60.502 - Unspecified acute noninfective otitis externa, left ear Disposition: DC HOME SELF CARE/HOMELESS Condition: STABLE Referrals: NO PCP (PCP) Patient Instructions: Otitis Externa Additional Instructions: Follow-up with your primary care provider or the ENT as soon as possible. Use eardrops as prescribed. Keep a cottonball in the ear to keep any kind of water out of it. Take your pain medication as prescribed. Scripts Ciprofloxacin Hcl/Dexameth (CIPRODEX OTIC SUSPENSION) 7.5 Ml Drops.susp 4 DROP LEFT EAR BID for 10 Days, #7.5 ML Prov: RODRIGUEZ TAYLOR APRN 07/22/20 RODRIGUEZ TAYLOR APRN Jul 22, 2020 12:35
[2020-07-22] MEDS ORDERED: HYDROcodone/APAP 5/325MG 1 TAB TABLET PO ONE (13:15)
== END 2020-07-22 13:21 | disposition home or self-care (01) ==
LOC: ER 11:53
DX: H60.8X2 Other otitis externa, left ear (principal); I11.0 Hypertensive heart disease with heart failure; I50.9 Heart failure, unspecified; G43.909 Migraine, unspecified, not intractable, without status migrainosus; Z87.442 Personal history of urinary calculi; Z90.49 Acquired absence of other specified parts of digestive tract; Z98.51 Tubal ligation status; Z98.890 Other specified postprocedural states; Z88.8 Allergy status to other drugs, medicaments and biological substances
CPT/HCPCS: 99283

== ENCOUNTER 2020-08-19 15:33 | Emergency (ER) | payer MEDICARE, MEDICAID ==
[~2020-08-19] VITALS: Ht 175.3 cm; Wt 136.3 kg
[2020-08-19 15:38] VITALS: BP 170/97
[2020-08-19] MEDS ORDERED: OFLO5DRO7 LEFT EAR (16:30)
[2020-08-19] MEDS ORDERED: IBUPROFEN 400 MG TABLET. PO ONE (16:30)
[2020-08-19] MEDS ORDERED: HYDROcodone/APAP 5/325MG 1 TAB TABLET PO ONE (16:30)
--- NOTE | 2020-08-19 16:30 | ED.ADGEN ---
Past Medical History Past Medical History: CHF, Hypertension, Kidney Stone, Migraines, UTI, Other Additional Past Medical Histor: ENLARGED HEART, OVARIAN CYST,L5 herniated disc, dental abscesses, ear prob Past Surgical History: Cholecystectomy, , Tubal ligation, Other Additional Past Surgical Histo: Laproscopy,D&C, herniated disc, CLOT REMOVAL FROM OVARY Smoking Status: Never Smoker Alcohol Use: None Drug Use: None General Adult EDM: Chief Complaint: EARACHE/EAR PAIN HPI: HPI: Patient is a 40 year old AA female who presents emergency department with complaints of right ear pain for the last 4 days. She denies any bloody discharge or purulent drainage from her ear. Patient states she is supposed to see a ENT specialist next week to talk about getting tubes put in her ear. She denies any fever, cough, nausea, vomiting, diarrhea, abdominal pain, rash, sore throat, body aches. Patient denies any ringing in her ear or difficulty hearing. She also denies any dental pain. Patient currently rates her pain a 10 out of 10 on the pain scale, she is requesting hydrocodone and ibuprofen for relief of her pain. She denies any alleviating factors. Patient denies any chance of , her last menstrual cycle began 2 days ago. Review of Systems: Review of Systems: Complete ROS is negative unless otherwise noted in HPI. Current Medications: Current Medications Medications (Trade) Dose Ordered Sig/[facility] Start Time Stop Time Status Last Admin Dose Admin Acetaminophen/ Hydrocodone Bitart (Lortab 5/325) 1 tab 1X ONCE 08/19/20 16:30 08/19/20 16:31 DC 08/19/20 16:44 1 TAB Ibuprofen (Motrin) 600 mg 1X ONCE 08/19/20 16:30 08/19/20 16:31 DC 08/19/20 16:44 600 MG Allergies: Allergies: Allergies Coded Allergies Type Severity Reaction Last Updated Verified naproxen Allergy Intermediate Sweat 02/07/18 Yes propoxyphene napsylate Allergy Intermediate Chest problem 12/16/17 Yes tramadol Allergy Intermediate Chest problem 12/16/17 Yes Physical Exam: PE: See Above Constitutional: Well developed, well nourished, no acute distress, non-toxic appearance, obese. [] HENT: Normocephalic, atraumatic, right external ears normal, bilateral TMs normal, no mastoid tenderness or erythema bilaterally, nose normal; erythema with mild edema of left external canal concerning for otitis externa, no abnormal discharge noted Eyes: PERRLA, EOMI, conjunctiva normal, no discharge. [] Neck: Normal range of motion, no stridor. [] Cardiovascular:Heart rate regular rhythm Lungs & Thorax: Respirations even and unlabored, no retractions, no respiratory distress Skin: Warm, dry, no erythema, no rash. [] Extremities: No cyanosis, ROM intact, no edema. [] Neurologic: Alert and oriented X 3, no focal deficits noted. [] Psychologic: Affect normal, judgement normal, mood normal. [] Current Patient Data: Vital Signs: Vital Signs Date Time Temp Pulse Resp B/P (MAP) Pulse Ox O2 Delivery O2 Flow Rate FiO2 08/19/20 15:38 98.2 100 20 170/97 (121) 96 Room Air 98.2 EKG: EKG: [] Heart Score: C/O Chest Pain: No Risk Scores: Score 0 - 3: 2.5% MACE over next 6 weeks - Discharge Home Score 4 - 6: 20.3% MACE over next 6 weeks - Admit for Clinical Observation Score 7 - 10: 72.7% MACE over next 6 weeks - Early Invasive Strategies Radiology/Procedures: Radiology/Procedures: [] Course & Med Decision Making: Course & Med Decision Making Pertinent Labs and Imaging studies reviewed. (See chart for details) [] Dragon Disclaimer: Dragon Disclaimer: This electronic medical record was generated, in whole or in part, using a voice recognition dictation system. Departure Departure Impression: Primary Impression: Left otitis externa Disposition: HOME / SELF CARE / HOMELESS Condition: STABLE Referrals: UNKNOWN PCP NAME (PCP) ALISON TIMMONS MD Patient Instructions: Otitis Externa, [id number] Additional Instructions: Fill the prescription(s) and use as directed. Alternate Tylenol and ibuprofen as needed for pain/fever. Follow-up with your ear nose and throat doctor as planned next week, return to the ER if symptoms worsen or fever develops.. Scripts Ofloxacin (OFLOXACIN) 5 Ml Drops 5 DROP LEFT EAR BID for 5 Days, #5 ML 0 Refills Prov: AR STEVEN APRN 08/19/20 Attending Signature Attending Signature I have participated in the care of this patient and I have reviewed and agree with all pertinent clinical information above including history, exam, and recommendations. Problem Qualifiers Primary Impression: Left otitis externa Otitis externa type: unspecified type Chronicity: acute Qualified Codes: H60.502 - Unspecified acute noninfective otitis externa, left ear AR STEVEN TUBE WASHER Aug 19, 2020 16:30 DREW VILLEGAS DO Aug 19, 2020 18:32
== END 2020-08-19 16:45 | disposition home or self-care (01) ==
LOC: ER 15:33
DX: H60.8X2 Other otitis externa, left ear (principal); I11.0 Hypertensive heart disease with heart failure; I50.9 Heart failure, unspecified; G43.909 Migraine, unspecified, not intractable, without status migrainosus; Z87.442 Personal history of urinary calculi; Z98.890 Other specified postprocedural states; Z98.51 Tubal ligation status; Z90.49 Acquired absence of other specified parts of digestive tract; Z88.8 Allergy status to other drugs, medicaments and biological substances
CPT/HCPCS: 99283

== ENCOUNTER 2020-11-03 13:16 | Emergency (ER) | payer MEDICARE, MEDICAID ==
[~2020-11-03 13:16] MED LIST changes: +OFLO5DRO7 LEFT EAR
== END 2020-11-03 13:48 | disposition left against medical advice (07) ==
LOC: ER 13:16
DX: H92.02 Otalgia, left ear (principal); Z53.21 Procedure and treatment not carried out due to patient leaving prior to being seen by health care provider

== ENCOUNTER 2020-12-29 13:46 | Emergency (ER) | payer MEDICARE, MEDICAID ==
[~2020-12-29] VITALS: Ht 170.2 cm; Wt 145.0 kg
[2020-12-29 14:00] VITALS: BP 136/80
[2020-12-29] MEDS ORDERED: IV NORMAL SALINE 1000ML BAG 1,000 ML IV ONE (14:30)
[2020-12-29] MEDS ORDERED: fentaNYL PF VIAL 100 MCG/2 ML VIAL IVP ONE (14:30)
--- NOTE | 2020-12-29 14:52 | PHYS DOC ---
Past Medical History Past Medical History: CHF, Hypertension, Kidney Stone, Migraines, UTI, Other Additional Past Medical Histor: ENLARGED HEART, OVARIAN CYST,L5 herniated disc, dental abscesses, ear prob Past Surgical History: Cholecystectomy, , Tubal ligation, Other Additional Past Surgical Histo: Laproscopy,D&C, herniated disc, CLOT REMOVAL FROM OVARY Smoking Status: Never Smoker Alcohol Use: None Drug Use: None General Adult EDM: Chief Complaint: EARACHE/EAR PAIN HPI: HPI: Patient is a 40 year old female who presents with frequent ear infections with the last being a month and a half ago. She does have an ENT doctor but has not been able to get into. She states for the last week she has had bilateral ear pain. States her hearing is muffled. She denies fever, headache, nausea, vomiting, diarrhea, vision change, focal weakness, chest pain, shortness of air, cough. Patient has a history of frequent otitis media and otitis externa, CHF, kidney stone, migraine, hypertension, UTI, enlarged heart, removal of clot from ovary, herniated disc, D&C, cholecystectomy, , tubal ligation. Review of Systems: Review of Systems: Constitutional: Denies fever or chills. [] Eyes: Denies change in visual acuity. [] HENT: Denies nasal congestion or sore throat. + Bilateral ear pain [] Respiratory: Denies cough or shortness of breath. [] Cardiovascular: Denies chest pain or edema. [] GI: Denies abdominal pain, nausea, vomiting, bloody stools or diarrhea. [] : Denies dysuria. [] Musculoskeletal: Denies back pain or joint pain. [] Integument: Denies rash. [] Neurologic: Denies headache, focal weakness or sensory changes. [] Endocrine: Denies polyuria or polydipsia. [] Lymphatic: Denies swollen glands. [] Psychiatric: Denies depression or anxiety. [] Heart Score: C/O Chest Pain: No Risk Factors: Risk Factors: DM, Current or recent (<one month) smoker, HTN, HLP, family history of CAD, obesity. Risk Scores: Score 0 - 3: 2.5% MACE over next 6 weeks - Discharge Home Score 4 - 6: 20.3% MACE over next 6 weeks - Admit for Clinical Observation Score 7 - 10: 72.7% MACE over next 6 weeks - Early Invasive Strategies Current Medications: Current Medications Medications (Trade) Dose Ordered Sig/Ravinder Start Time Stop Time Status Last Admin Dose Admin Fentanyl Citrate (Fentanyl 2ml Vial) 25 mcg 1X ONCE 12/29/20 14:30 12/29/20 14:37 DC Sodium Chloride 1,000 ml @ 1,000 mls/hr 1X ONCE 12/29/20 14:30 12/29/20 15:29 Allergies: Allergies: Allergies Coded Allergies Type Severity Reaction Last Updated Verified naproxen Allergy Intermediate Sweat 02/07/18 Yes propoxyphene napsylate Allergy Intermediate Chest problem 12/16/17 Yes tramadol Allergy Intermediate Chest problem 12/16/17 Yes Physical Exam: PE: Constitutional: Well developed, well nourished, no acute distress, non-toxic appearance. [] HENT: Normocephalic, atraumatic, bilateral external ears normal, oropharynx moist, no oral exudates, nose normal. Bilateral tympanic's, bilateral otitis externa. Bilateral tender mastoids. [] Eyes: PERRLA, EOMI, conjunctiva normal, no discharge. [] Neck: Normal range of motion, no tenderness, supple, no stridor. [] Cardiovascular:Heart rate regular rhythm, no murmur [] Lungs & Thorax: Bilateral breath sounds clear to auscultation [] Abdomen: Bowel sounds normal, soft, no tenderness, no masses, no pulsatile masses. [] Skin: Warm, dry, no erythema, no rash. [] Back: No tenderness, no CVA tenderness. [] Extremities: No tenderness, no cyanosis, no clubbing, ROM intact, no edema. [] Neurologic: Alert and oriented X 3, normal motor function, normal sensory function, no focal deficits noted. [] Psychologic: Affect normal, judgement normal, mood normal. [] Current Patient Data: Vital Signs: Vital Signs Date Time Temp Pulse Resp B/P (MAP) Pulse Ox O2 Delivery O2 Flow Rate FiO2 12/29/20 14:00 98.8 78 16 136/80 (121) 98 Room Air 98.8 EKG: EKG: [] Radiology/Procedures: Radiology/Procedures: [] Impression: [facility] [address] [place] [address] IMAGING REPORT Signed PATIENT: DEVORA URBANOOUNT: [id number] : 1980 LOCATION: ER AGE: 40 SEX: F EXAM STATUS: REG ER ORD. PHYSICIAN: RODRIGUEZ TAYLOR APRN REASON: MASTOID PAIN PROCEDURE: CT HEAD WO CONTRAST EXAM: CT Head without IV contrast CLINICAL HISTORY: Reason: MASTOID PAIN / Spl. Instructions: / History: COMPARISON: None. TECHNIQUE: Routine CT of the head without contrast. PQRS compliance statement - One or more of the following individualized dose reduction techniques were utilized for this study: 1. Automated exposure control 2. Adjustment of the mA and/or kV according to patient size 3. Use of iterative reconstruction technique FINDINGS: There is no evidence of hemorrhage, mass or extra-axial fluid collection. Brenner-white differentiation is maintained with no evidence of edema. There is no mass effect or shift of the intracranial structures. The ventricles, basilar cisterns and cortical sulci are normal in size and configuration for the patients stated age. The cerebellum and brainstem are unremarkable. The calvarium demonstrates no evidence of fracture or focal lesion. There is normal aeration of the visualized paranasal sinuses and mastoid air cells. The visualized portions of the orbits are normal. IMPRESSION: No evidence for acute intracranial process. Mastoid air cells are essentially clear. Electronically signed by: Freddie Quintero MD (12/29/2020 3:05 PM) [facility] DICTATED and SIGNED BY: FREDDIE QUINTERO MD DATE: 12/29/20 [id number] Course & Med Decision Making: Course & Med Decision Making Pertinent Labs and Imaging studies reviewed. (See chart for details) See HPI. Alert and oriented x4. Ambulatory steady gait. Speaks in full clear sentences. Bilateral mastoids are tender. There is tender with examination. Bilateral otitis externa and otitis media. Bilateral tympanic's are reddened. Afebrile. Radiology stated they talk to the radiologist and they stated that I could do a CT head without contrast to rule out mastoiditis. CT head showed no acute findings. Patient will be placed on Augmentin and to follow-up with her ears nose throat doctor soon as possible. [] Adrianna Disclaimer: Adrianna Disclaimer: This electronic medical record was generated, in whole or in part, using a voice recognition dictation system. Departure Departure Impression: Primary Impression: Recurrent AOM (acute otitis media) Disposition: HOME / SELF CARE / HOMELESS Condition: STABLE Referrals: UNKNOWN PCP NAME (PCP) Patient Instructions: Otitis Media, Adult Additional Instructions: Follow-up with your ears nose throat doctor soon as possible. Take medication as prescribed and with food. Drink plenty of fluids. Member medication will make you sleepy so do not drive or drink alcohol or do any other drugs on top of it. Scripts Amoxicillin/Potassium Clav (AUGMENTIN 875-125 TABLET) 1 Each Tablet 1 TAB PO BID for 10 Days, #20 TAB 0 Refills Prov: RODRIGUEZ TAYLOR APRN 12/29/20 Hydrocodone Bit/Acetaminophen (HYDROCODONE-APAP 5-325 ) 1 Tab Tablet 1 TAB PO PRN Q6HRS PRN for PAIN, #10 TAB 0 Refills Prov: RODRIGUEZ TAYLOR APRN 12/29/20 RODRIGUEZ TAYLOR APRN Dec 29, 2020 14:52
--- NOTE | 2020-12-29 15:07 | RAD ---
EXAM: CT Head without IV contrast CLINICAL HISTORY: Reason: MASTOID PAIN / Spl. Instructions: / History: COMPARISON: None. TECHNIQUE: Routine CT of the head without contrast. PQRS compliance statement - One or more of the following individualized dose reduction techniques wer e utilized for this study: 1. Automated exposure control 2. Adjustment of the mA and/or kV according to patient size 3. Use of iterative reconstruction technique FINDINGS: There is no evidence of hemorrhage, mass or extra-axial fluid collection. Brenner-white differentiation is maintained with no evidence of edema. There is no mass effect or shift of the intracranial structures. The ventricles, basilar cisterns and cortical sulci are normal in size and configuration for the julien ents stated age. The cerebellum and brainstem are unremarkable. The calvarium demonstrates no evidence of fracture or focal lesion. There is normal aeration of the visualized paranasal sinuses and mastoid air cells. The visualized portions of the orbits are normal. IMPRESSION: No evidence for acute intracranial process. Mastoid air cells are essentially clear. Electronically signed by: Freddie Maloney MD (12/29/2020 3:05 PM) [facility]
[2020-12-29 15:28] LABS: BASO % 0 % (0-3); EOS % 0 % (0-3); HEMATOCRIT 34.2 % (36.0-47.0); LYMPH # 2.3 x10^3/uL (1.0-4.8); LYMPH % 35 % (24-48); MEAN CORPUSCULAR HEMOGLOBIN 25 pg (25-35); MEAN CORPUSCULAR HGB CONC 32 g/dL (31-37); MEAN CORPUSCULAR VOLUME 77 fL (79-100); MONO # 0.4 x10^3/uL (0.0-1.1); MONO % 6 % (0-9); NEUT # 3.9 x10^3/uL (1.8-7.7); NEUT % 58 % (31-73); PLATELET COUNT 266 x10^3/uL (140-400); RED BLOOD COUNT 4.46 x10^6/uL (3.50-5.40); RED CELL DISTRIBUTION WIDTH 16.1 % (11.5-14.5); WHITE BLOOD COUNT 6.7 x10^3/uL (4.0-11.0)
[2020-12-29] MEDS ORDERED: HYDR-2761 PO (17:05)
[2020-12-29] MEDS ORDERED: AMOX1TAB61 PO (17:05)
[2020-12-29 17:08] LABS: CREATININE 0.7 mg/dL (0.6-1.0); GFR 111.6; POTASSIUM 3.9 mmol/L (3.5-5.1)
[2020-12-29 17:12] LABS: ALBUMIN 3.2 g/dL (3.4-5.0); ALBUMIN/GLOBULIN RATIO 0.8 (1.0-1.7); TOTAL BILIRUBIN 0.5 mg/dL (0.2-1.0); TOTAL PROTEIN 7.4 g/dL (6.4-8.2)
== END 2020-12-29 17:40 | disposition home or self-care (01) ==
LOC: ER 13:46
DX: H66.93 Otitis media, unspecified, bilateral (principal); I11.0 Hypertensive heart disease with heart failure; I50.9 Heart failure, unspecified; G43.909 Migraine, unspecified, not intractable, without status migrainosus; Z88.5 Allergy status to narcotic agent; Z88.6 Allergy status to analgesic agent; Z88.8 Allergy status to other drugs, medicaments and biological substances
CPT/HCPCS: 36415; 70450; 80053; 85025; 96374; 99284; J3010

== ENCOUNTER 2021-03-31 13:39 | Emergency (ER) | payer MEDICARE, MEDICAID ==
[~2021-03-31 13:39] MED LIST changes: +CYCL10TA19 PO; -CYCL10TA2 PO; -LISI-517 PO; +LISI5TAB15 PO
== END 2021-03-31 16:58 | disposition left against medical advice (07) ==
LOC: ER 13:39
DX: H92.02 Otalgia, left ear (principal); Z53.21 Procedure and treatment not carried out due to patient leaving prior to being seen by health care provider

== ENCOUNTER 2021-04-15 11:09 | Emergency (ER) | payer MEDICARE, MEDICAID ==
[~2021-04-15] VITALS: Ht 175.3 cm; Wt 153.4 kg
[2021-04-15 11:45] VITALS: BP 148/99
[2021-04-15] MEDS ORDERED: DEXAMETHASONE 4 MG TABLET PO ONE (12:00)
[2021-04-15] MEDS ORDERED: oxyCODONE/APAP 5/325 1 TAB TABLET PO ONE (12:30)
[2021-04-15] MEDS ORDERED: NEOM10DR32 AS (12:34)
--- NOTE | 2021-04-15 12:34 | PHYS DOC ---
Past Medical History Past Medical History: CHF, Hypertension, Kidney Stone, Migraines, UTI, Other Additional Past Medical Histor: ENLARGED HEART, OVARIAN CYST,L5 herniated disc, dental abscesses, ear prob Past Surgical History: Cholecystectomy, , Tubal ligation, Other Additional Past Surgical Histo: Laproscopy,D&C, herniated disc, CLOT REMOVAL FROM OVARY Smoking Status: Never Smoker Alcohol Use: None Drug Use: None General Adult EDM: Chief Complaint: EARACHE/EAR PAIN HPI: HPI: Patient is a 41 year old female who presents with left ear pain for the past 2 weeks. She denies any drainage from the ear. She states she felt a popping in the left ear a few days ago but has not had any episodes since. Patient states that ear infections are common for her and that she has had an estimated 80 ear infections over the past 4 years. She follows up with ENT at [facility] and is in discussions about surgery. Patient is going to call her ENT doctor later today. Patient is otherwise not having any symptoms and denies any congestion runny nose sore throat or cough. Review of Systems: Review of Systems: Constitutional: Denies fever or chills Eyes: Denies redness or eye pain HENT: Positive for left ear pain, denies drainage from ears, nasal congestion, sore throat, rhinorrhea Respiratory: Denies cough or shortness of breath Cardiovascular: Denies chest pain or palpitations Neurologic: Denies headache Complete systems were reviewed and found to be within normal limits, except as documented in this note. Heart Score: C/O Chest Pain: N/A Current Medications: Current Medications Medications (Trade) Dose Ordered Sig/Ravinder Start Time Stop Time Status Last Admin Dose Admin Dexamethasone (Decadron) 10 mg 1X ONCE 04/15/21 12:00 04/15/21 12:01 DC Allergies: Allergies: Allergies Coded Allergies Type Severity Reaction Last Updated Verified naproxen Allergy Intermediate Sweat 02/07/18 Yes propoxyphene napsylate Allergy Intermediate Chest problem 12/16/17 Yes tramadol Allergy Intermediate Chest problem 12/16/17 Yes Physical Exam: PE: Constitutional: Well developed, well nourished, mild distress secondary to ear pain HENT: Bilateral tympanic membranes clear with visible cone of light, tenderness to examination of left ear, swelling of left ear canal, right ear canal normal and nontender. Head normocephalic, atraumatic Eyes: Conjunctiva normal, no discharge Neck: Normal range of motion, supple Lungs & Thorax: No respiratory distress, equal chest rise and fall Skin: Warm, dry, no erythema Neurologic: Alert and oriented X 3, no focal deficits noted Psychologic: Affect normal, judgment normal Current Patient Data: Vital Signs: Vital Signs Date Time Temp Pulse Resp B/P (MAP) Pulse Ox O2 Delivery O2 Flow Rate FiO2 04/15/21 11:45 98.9 70 16 148/99 (115) 95 Room Air 98.9 EKG: EKG: [] Radiology/Procedures: Radiology/Procedures: [] Course & Med Decision Making: Course & Med Decision Making Patient presented with left ear pain for the past two weeks. On examination, left ear canal was slightly more edematous than the right. Patient was very tender upon examination of left ear. Wrote prescriptions for dexamethasone for inflammation and oxycodone for pain. Patient stable for discharge with outpatient follow-up with PCP/ENT. Discussed findings and plan with patient, who acknowledges understanding and agreement. [] Dragon Disclaimer: Dragon Disclaimer: This electronic medical record was generated, in whole or in part, using a voice recognition dictation system. Departure Departure Impression: Primary Impression: Otalgia, left ear Disposition: HOME / SELF CARE / HOMELESS Condition: STABLE Referrals: UNKNOWN PCP NAME (PCP) Patient Instructions: Otalgia, Otitis Externa, [id number] Additional Instructions: There is concern given your history of frequent ear infections that you may have a slight otitis externa. We have therefore provided some eardrops for you to use. Please follow with your ENT for further evaluation and treatment. Scripts Neomycin/Polymyxin B Sulf/Hc ([id number] EAR SUSP) 10 Ml Drops.susp 4 DROP TID for 5 Days, #10 ML 0 Refills Prov: ELIER WETZEL DO 04/15/21 ELIER WETZEL DO Apr 15, 2021 12:34
== END 2021-04-15 12:40 | disposition home or self-care (01) ==
LOC: ER 11:09
DX: H92.02 Otalgia, left ear (principal); I11.0 Hypertensive heart disease with heart failure; I50.9 Heart failure, unspecified; G43.909 Migraine, unspecified, not intractable, without status migrainosus; Z88.5 Allergy status to narcotic agent; Z88.6 Allergy status to analgesic agent; Z88.8 Allergy status to other drugs, medicaments and biological substances
CPT/HCPCS: 99283